=== PATIENT | female | born 1990 | race Caucasian/White ===

== ENCOUNTER 2018-06-27 20:22 | Emergency (ER) | payer OTHER, SELFPAY ==
--- NOTE | 2018-06-27 20:49 | ER ---
Nurse's Notes [facility] Name: Mansi Mcqueen Age: 27 yrs Sex: Female : 1990 Arrival Date: 06/27/2018 Time: 20:23 Bed 7 Private MD: Diagnosis: Acute tonsillitis Presentation: 06/27 20:38 Presenting complaint: Patient states: Sore throat with white patches on tonsils x 2 tl2 days. Pt reports being exposed to strep. Denies cough, congestion or other symptoms. Transition of care: patient was not received from another setting of care. Onset of symptoms was June 25, 2018. Risk Assessment: Do you want to hurt yourself or someone else? Patient reports no desire to harm self or others. Initial Sepsis Screen: Does the patient meet any 2 criteria? No. Patient's initial sepsis screen is negative. Does the patient have a suspected source of infection? No. Patient's initial sepsis screen is negative. Care prior to arrival: None. 20:38 Method Of Arrival: Ambulatory tl2 20:38 Acuity: MASHA 4 tl2 Triage Assessment: 20:40 General: Appears in no apparent distress. uncomfortable, Behavior is calm, cooperative, tl2 appropriate for age. Pain: Complains of pain in throat. EENT: Throat has patchy exudate has enlarged tonsils bilaterally. Neuro: Level of Consciousness is awake, alert, obeys commands, Oriented to person, place, time, situation. Cardiovascular: Denies chest pain. Respiratory: Airway is patent Respiratory effort is even, unlabored, Respiratory pattern is regular, symmetrical. GI: No signs and/or symptoms were reported involving the gastrointestinal system. 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 - Social history:: Smoking status: Patient uses tobacco products, smokes one-half pack cigarettes per day. - Ebola Screening: : No symptoms or risks identified at this time. Screenin:42 Abuse screen: Denies threats or abuse. Nutritional screening: No deficits noted. tl2 Tuberculosis screening: No symptoms or risk factors identified. Fall Risk None identified. Assessment: 20:40 General: see triage assessment. tl2 20:57 Reassessment: Patient appears in no apparent distress at this time. Patient and/or tl2 family updated on plan of care and expected duration. Pain level reassessed. Patient is alert, oriented x 3, equal unlabored respirations, skin warm/dry/pink. Pt verbalized understanding of discharge instructions, need for follow up and prescription usage. Vital Signs: 20:40 BP 122 / 74; Pulse 106; Resp 20; Temp 98.8(O); Pulse Ox 99% on R/A; Weight 74.84 kg; tl2 Height 5 ft. 8 in. (172.72 cm); Pain 5/10; 20:40 Body Mass Index 25.09 (74.84 kg, 172.72 cm) tl2 ED Course: 20:23 Patient arrived in ED. am2 20:32 Joel Durham PA is PHCP. cp 20:32 Johnny Meek MD is Attending Physician. cp 20:38 Shweta Urbina, ROSY is Primary Nurse. tl2 20:39 Triage completed. tl2 20:40 Arm band placed on right wrist. tl2 20:42 Patient has correct armband on for positive identification. Bed in low position. Call tl2 light in reach. Side rails up X 1. 20:57 No provider procedures requiring assistance completed. Patient did not have IV access tl2 during this emergency room visit. Administered Medications: No medications were administered Outcome: 20:48 Discharge ordered by MD. cp 20:57 Discharged to home ambulatory. tl2 20:57 Condition: stable 20:57 Discharge instructions given to patient, Instructed on discharge instructions, follow up and referral plans. medication usage, Demonstrated understanding of instructions, follow-up care, medications, Prescriptions given X 1. 20:58 Patient left the ED. tl2 Signatures: Joel Durham PA PA cp Knox, Taylor, ROSY RN tl2 Lynn Kaur am2 Corrections: (The following items were deleted from the chart) 20:57 20:57 General: Appears tl2 tl2
--- NOTE | 2018-06-27 20:49 | EDPHYS ---
Physician Documentation [facility] Name: Masni Mcqueen Age: 27 yrs Sex: Female : 1990 Arrival Date: 06/27/2018 Time: 20:23 Bed 7 Private MD: ED Physician Johnny Meek HPI: 06/27 20:40 This 27 yrs old Female presents to ER via Ambulatory with complaints of Sore cp Throat. 20:40 The patient presents with sore throat. The patient describes throat pain as constant. cp Onset: The symptoms/episode began/occurred this morning, and became worse today. Severity of symptoms: in the emergency department the symptoms are unchanged, despite home interventions. Modifying factors: the symptoms are aggravated by swallowing. Associated signs and symptoms: Pertinent negatives cough, diarrhea, fever, flu-like symptoms, vomiting. 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 - Social history:: Smoking status: Patient uses tobacco products, smokes one-half pack cigarettes per day. - Ebola Screening: : No symptoms or risks identified at this time. ROS: 20:41 Eyes: Negative for injury, pain, redness, and discharge. cp 20:41 Constitutional: Negative for body aches, chills, fever, poor PO intake. 20:41 ENT: Positive for sore throat, Negative for drainage from ear(s), ear pain, rhinorrhea, difficulty swallowing, difficulty handling secretions. 20:41 Cardiovascular: Negative for chest pain. 20:41 Respiratory: Negative for cough, wheezing. 20:41 Abdomen/GI: Negative for abdominal pain, vomiting, diarrhea, constipation. 20:41 Skin: Negative for cellulitis, rash. 20:41 Neuro: Negative for altered mental status, headache, weakness. 20:41 All other systems are negative. Exam: 20:43 Head/Face: Normocephalic, atraumatic. cp 20:43 Constitutional: The patient appears in no acute distress, alert, awake, non-toxic, well developed, well nourished. 20:43 Eyes: Periorbital structures: appear normal, Conjunctiva: normal, no exudate, no injection, Sclera: no appreciated abnormality, Lids and lashes: appear normal, bilaterally. 20:43 ENT: External ear(s): are unremarkable, Ear canal(s): are normal, clear, TM's: bulging, is not appreciated, bilaterally, dullness, bilaterally, erythema, is not appreciated, bilaterally, Nose: is normal, Mouth: Lips: moist, Oral mucosa: moist, Posterior pharynx: Airway: no evidence of obstruction, patent, Tonsils: bilaterally enlarged, with erythema, with exudate, Uvula: midline, swelling, is not appreciated, erythema, that is moderate, Voice: is normal. 20:43 Neck: ROM/movement: is normal, is supple, without pain, no range of motions limitations, no meningismus, no nuchal rigidity, Lymph nodes: lymphadenopathy is appreciated, anterior cervical nodes. 20:43 Chest/axilla: Inspection: normal, Palpation: is normal, no crepitus, no tenderness. 20:43 Cardiovascular: Rate: tachycardic, Rhythm: regular. 20:43 Respiratory: the patient does not display signs of respiratory distress, Respirations: normal, no use of accessory muscles, no retractions, no splinting, no tachypnea, labored breathing, is not present, Breath sounds: are clear throughout, no decreased breath sounds, no stridor, no wheezing. 20:43 Abdomen/GI: Exam negative for discomfort, distension, Inspection: abdomen appears normal. 20:43 Skin: cellulitis, is not appreciated, no rash present. Vital Signs: 20:40 BP 122 / 74; Pulse 106; Resp 20; Temp 98.8(O); Pulse Ox 99% on R/A; Weight 74.84 kg; tl2 Height 5 ft. 8 in. (172.72 cm); Pain 5/10; 20:40 Body Mass Index 25.09 (74.84 kg, 172.72 cm) tl2 MDM: 20:32 Patient medically screened. cp 20:47 Data reviewed: vital signs, nurses notes, and as a result, I will discharge patient. cp Administered Medications: No medications were administered Disposition: 06/28 06:02 Co-signature as Attending Physician, Johnny Meek MD. ma2 Disposition: 06/27/18 20:48 Discharged to Home. Impression: Acute tonsillitis. - Condition is Stable. - Discharge Instructions: Tonsillitis. - Prescriptions for Clindamycin HCl 300 mg Oral Capsule - take 1 capsule by ORAL route every 8 hours for 10 days; 30 capsule. - Medication Reconciliation Form, Thank You Letter, Antibiotic Education, Prescription Opioid Use form. - Follow up: Private Physician; When: 2 - 3 days; Reason: Recheck today's complaints. - Problem is new. - Symptoms are unchanged. Signatures: Joel Durham PA PA cp Knox, Taylor RN RN tl2 Johnny Meek MD MD ma2 Corrections: (The following items were deleted from the chart) 06/27 20:58 20:48 06/27/2018 20:48 Discharged to Home. Impression: Acute tonsillitis. Condition is tl2 Stable. Forms are Medication Reconciliation Form, Thank You Letter, Antibiotic Education, Prescription Opioid Use. Follow up: Private Physician; When: 2 - 3 days; Reason: Recheck today's complaints. Problem is new. Symptoms are unchanged. cp
[2018-06-27 21:08] VITALS: BP 122/74; TEMP 98.8; O2SAT 99
== END 2018-06-27 20:58 | disposition home or self-care (01) ==
LOC: ER 20:22
DX: J03.90 Acute tonsillitis, unspecified (principal); F17.210 Nicotine dependence, cigarettes, uncomplicated
CPT/HCPCS: 99282

== ENCOUNTER 2018-06-28 07:15 | Emergency (ER) | payer SELFPAY ==
[2018-06-28] MEDS ORDERED: LIDOCAINE VISCOUS 2% SOLN 15 ML UDC ONE (08:02)
--- NOTE | 2018-06-28 08:22 | EDPHYS ---
Physician Documentation [facility] Name: Mansi Mcqueen Age: 27 yrs Sex: Female : 1990 Arrival Date: 06/28/2018 Time: 07:20 Bed 20 Private MD: None, None ED Physician Joel Stacy HPI: 06/28 07:32 This 27 yrs old Female presents to ER via Unassigned with complaints of Sore kb Throat. 07:30 Pt was seen here last night and diagnosed with tonsillitis, given prescription for kb antibiotics. States symptoms got worse since then and she can't swallow the pills due to pain. 07:32 The patient presents with sore throat. The patient describes throat pain as constant. kb Onset: The symptoms/episode began/occurred 2 day(s) ago. Severity of symptoms: At their worst the symptoms were moderate, in the emergency department the symptoms are unchanged. Modifying factors: The symptoms are alleviated by nothing, the symptoms are aggravated by swallowing, Patient's oral intake status: limited fluid intake, limited food intake, Denies contact with similarly ill indivduals. Associated signs and symptoms: Pertinent positives: chills, fever, Sore throat Pertinent negatives chest pain, cough, diarrhea, dysphagia, earache, flu-like symptoms, headache, nausea, rhinorrhea, shortness of breath, vomiting. The patient has not experienced similar symptoms in the past. The patient has been recently seen at the [facility] Emergency Department, yesterday, for similar complaints was given a prescription for antibiotics. Pt denies allergy to PCN. Reports she just took a course of PCN for a bad tooth and did not have a reaction. Reports only allergy is to bactrim. . 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 - Social history:: Smoking status: Patient uses tobacco products, smokes one-half pack cigarettes per day. - Ebola Screening: : Patient negative for fever greater than or equal to 101.5 degrees Fahrenheit, and additional compatible Ebola Virus Disease symptoms Patient denies exposure to infectious person Patient denies travel to an Ebola-affected area in the 21 days before illness onset No symptoms or risks identified at this time. ROS: 07:32 Constitutional: Negative for fever, chills, and weight loss, Cardiovascular: Negative kb for chest pain, palpitations, and edema, Respiratory: Negative for shortness of breath, cough, wheezing, and pleuritic chest pain, Abdomen/GI: Negative for abdominal pain, nausea, vomiting, diarrhea, and constipation, MS/Extremity: Negative for injury and deformity, Skin: Negative for injury, rash, and discoloration, Neuro: Negative for headache, weakness, numbness, tingling, and seizure. 07:32 ENT: Positive for sore throat. Exam: 07:32 Constitutional: This is a well developed, well nourished patient who is awake, alert, kb and in no acute distress. Head/Face: Normocephalic, atraumatic. Chest/axilla: Normal chest wall appearance and motion. Nontender with no deformity. No lesions are appreciated. Cardiovascular: Regular rate and rhythm with a normal S1 and S2. No gallops, murmurs, or rubs. Normal PMI, no JVD. No pulse deficits. Respiratory: Lungs have equal breath sounds bilaterally, clear to auscultation and percussion. No rales, rhonchi or wheezes noted. No increased work of breathing, no retractions or nasal flaring. Abdomen/GI: Soft, non-tender, with normal bowel sounds. No distension or tympany. No guarding or rebound. No evidence of tenderness throughout. Skin: Warm, dry with normal turgor. Normal color with no rashes, no lesions, and no evidence of cellulitis. MS/ Extremity: Pulses equal, no cyanosis. Neurovascular intact. Full, normal range of motion. Neuro: Awake and alert, GCS 15, oriented to person, place, time, and situation. Cranial nerves II-XII grossly intact. Motor strength 5/5 in all extremities. Sensory grossly intact. Cerebellar exam normal. Normal gait. 07:32 ENT: Posterior pharynx: Airway: normal, Tonsils: bilaterally enlarged, with erythema, with exudate, Uvula: normal, midline, swelling, that is moderate, erythema, that is mild, exudate, that is moderate. Vital Signs: 07:48 BP 102 / 56; Pulse 97; Resp 18; Temp 99.7; Pulse Ox 97% ; Weight 74.84 kg; Height 5 ft. em 8 in. (172.72 cm); 07:48 Body Mass Index 25.09 (74.84 kg, 172.72 cm) em MDM: 07:[address] [facility] 07:34 Data reviewed: vital signs, nurses notes. Data interpreted: Pulse oximetry: on room air kb is 97 %. Interpretation: normal. 08:17 Counseling: I had a detailed discussion with the patient and/or guardian regarding: the kb historical points, exam findings, and any diagnostic results supporting the discharge/admit diagnosis, lab results, the need for outpatient follow up, a family practitioner, to return to the emergency department if symptoms worsen or persist or if there are any questions or concerns that arise at home. 06/28 07:30 Order name: Strep; Complete Time: 08:17 kb Administered Medications: 07:58 Drug: Viscous Lidocaine Liquid (4 %) 5 ml Route: Mucous Membrane; em 08:15 Follow up: Response: No adverse reaction; Pain is decreased em Disposition: 06/29 08:16 Co-signature as Attending Physician, Joel Stacy MD I agree with the assessment and [facility] plan of care. Disposition: 06/28/18 08:22 Discharged to Home. Impression: Streptococcal pharyngitis. - Condition is Stable. - Discharge Instructions: Strep Throat, [id number]. - Medication Reconciliation Form, Thank You Letter, Antibiotic Education, Prescription Opioid Use form. - Follow up: Emergency Department; When: As needed; Reason: Worsening of condition. Follow up: Private Physician; When: 2 - 3 days; Reason: Recheck today's complaints, Continuance of care, Re-evaluation by your physician. - Notes: Continue clindamycin as prescribed Signatures: Dispatcher [employer] Ebony Block, YUMIKO CABRERA-Joel Garrison MD MD cha Munoz, Edgar, GREEN CHAIN OFF BEARER GREEN CHAIN OFF BEARER em Corrections: (The following items were deleted from the chart) 06/28 08:32 08:22 06/28/2018 08:22 Discharged to Home. Impression: Streptococcal pharyngitis. em Condition is Stable. Forms are Medication Reconciliation Form, Thank You Letter, Antibiotic Education, Prescription Opioid Use. Follow up: Emergency Department; When: As needed; Reason: Worsening of condition. Follow up: Private Physician; When: 2 - 3 days; Reason: Recheck today's complaints, Continuance of care, Re-evaluation by your physician. kb
--- NOTE | 2018-06-28 08:22 | ER ---
Nurse's Notes [facility] Name: Mansi Mcqueen Age: 27 yrs Sex: Female : 1990 Arrival Date: 06/28/2018 Time: 07:20 Bed 20 Private MD: None, None Diagnosis: Streptococcal pharyngitis Presentation: 06/28 07:46 Presenting complaint: Patient states: c/o sore throat for 2 days with chills and em subjective fever, was seen here yesterday, denies N/V/D. Transition of care: patient was not received from another setting of care. Onset of symptoms was June 26, 2018. Risk Assessment: Do you want to hurt yourself or someone else? Patient reports no desire to harm self or others. Initial Sepsis Screen: Does the patient meet any 2 criteria? No. Patient's initial sepsis screen is negative. Does the patient have a suspected source of infection? No. Patient's initial sepsis screen is negative. Care prior to arrival: None. 07:46 Method Of Arrival: Ambulatory em 08:01 Acuity: MASHA 4 iw Triage Assessment: 07:47 General: Appears in no apparent distress. uncomfortable, Behavior is calm, cooperative. em Pain: Complains of pain in throat. EENT: Oral mucosa is moist. Throat is reddened has patchy exudate bilaterally. 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 - Social history:: Smoking status: Patient uses tobacco products, smokes one-half pack cigarettes per day. - Ebola Screening: : Patient negative for fever greater than or equal to 101.5 degrees Fahrenheit, and additional compatible Ebola Virus Disease symptoms Patient denies exposure to infectious person Patient denies travel to an Ebola-affected area in the 21 days before illness onset No symptoms or risks identified at this time. Screenin:57 Abuse screen: Denies threats or abuse. Nutritional screening: No deficits noted. em Tuberculosis screening: No symptoms or risk factors identified. Fall Risk None identified. Assessment: 07:45 General: Appears in no apparent distress. uncomfortable, Behavior is calm, cooperative. em Pain: Complains of pain in throat. Neuro: Level of Consciousness is awake, alert, obeys commands, Oriented to person, place, time, situation. Cardiovascular: Capillary refill < 3 seconds Patient's skin is warm and dry. Respiratory: Airway is patent Respiratory effort is even, unlabored, Respiratory pattern is regular, symmetrical, Breath sounds are clear bilaterally. GI: Abdomen is flat. : No signs and/or symptoms were reported regarding the genitourinary system. EENT: Oral mucosa is moist. Throat is reddened has patchy exudate has enlarged tonsils bilaterally. Derm: Skin is intact, Skin is pink, warm \T\ dry. Musculoskeletal: Range of motion: intact in all extremities. Vital Signs: 07:48 BP 102 / 56; Pulse 97; Resp 18; Temp 99.7; Pulse Ox 97% ; Weight 74.84 kg; Height 5 ft. em 8 in. (172.72 cm); 07:48 Body Mass Index 25.09 (74.84 kg, 172.72 cm) em ED Course: 07:20 Patient arrived in ED. mr 07:20 None, None is Private Physician. mr 07:21 Ebony Gonzales [facility]-C [facility]. kb 07:21 Joel Stacy MD is Attending Physician. kb 07:22 Ade Farias, RN is Primary Nurse. iw 07:53 Arm band placed on. em 07:57 Patient has correct armband on for positive identification. Bed in low position. Call em light in reach. 07:57 No provider procedures requiring assistance completed. em 07:58 Strep swab sent to lab. em 08:01 Triage completed. iw 08:31 Patient did not have IV access during this emergency room visit. em Administered Medications: 07:58 Drug: Viscous Lidocaine Liquid (4 %) 5 ml Route: Mucous Membrane; em 08:15 Follow up: Response: No adverse reaction; Pain is decreased em Outcome: 08:22 Discharge ordered by . kb 08:31 Discharged to home ambulatory. em 08:31 Condition: good 08:31 Discharge instructions given to patient, Instructed on discharge instructions, follow up and referral plans. Demonstrated understanding of instructions, follow-up care. 08:32 Patient left the ED. em Signatures: Ebony Gonzales, EPITAXIAL REACTOR OPERATOR-C EPITAXIAL REACTOR OPERATOR-Kevynb Ifeoma Mejia mr Duke Alejandre, UPSCALE SECURITY OFFICER UPSCALE SECURITY OFFICER Ade Mckeon, RN RN iw
[2018-06-28 08:40] VITALS: BP 102/56; TEMP 99.7; O2SAT 97
== END 2018-06-28 08:32 | disposition home or self-care (01) ==
LOC: ER 07:15
DX: J02.0 Streptococcal pharyngitis (principal); F17.210 Nicotine dependence, cigarettes, uncomplicated
CPT/HCPCS: 87081; 99283

== ENCOUNTER 2018-12-29 20:09 | Emergency (ER) | payer SELFPAY ==
--- OUTSIDE RECORDS SUMMARY | 2018-12-29 20:12 | XMS REPORT | Continuity of Care Document ---
:1990 Author Organization [facility] Address [address] [place] [address] Phone Unavailable Care Team Providers Name Role Phone PHYSICIAN, NO Primary Care Physician Unavailable Insurance Providers Guarantor Sudheer Mcqueen Address [address] [place] [address] Email NONE Payer Medicaid Policy Number [id number] Subscriber's Name Sudheer Mcqueen Relationship Self / Same As Patient Group Number [id number] Group Name [id number] Advance Directives Directive Response Recorded Date/Time Name of Surrogate/Decision Maker NA 12/17/18 2:08pm Patient/Family Given Education Material Y - KR...05...12/17/18 12/17/18 2: 09pm R/T Directives? Chief Complaint and Reason for Visit Chief Complaint HEENTL Reason for Visit Dentalgia Pain due to dental caries Problems Active ProblemsNo active problem information available. Past Problems Medical Problem Onset Date Status Dentalgia Unknown Acute Pain due to dental caries Unknown Acute Medications Current Home Medications Medication Dose Units Route Directions Days Qty Instructions Start Date Clindamycin Hcl 150 Mg ORAL Every 6 Hours 7 Days 28 Cap 12/17/18 (Cleocin 150 Mg for Infection *) 150 Mg Cap Social History Social History Problem Response Recorded Date/Time Onset Date Status Hx Physical Abuse No 12/17/2018 11:28am Not Applicable Not Applicable Smoking Status Start Date Stop Date Current every day smoker Hospital Discharge Instructions No hospital discharge instruction information available. Plan of Care Discharge Date 12/17/18 4:34pm Instructions/Education Provided Dental Caries, Adult Forms Provided Portal Welcome Letter Prescriptions See Medication Section Referrals NO PHYSICIAN Additional Instructions/Education TAKE ALL MEDICATIONS PRESCRIBED. CLINDAMYCIN 150MG CAP 1 BY MOUTH EVERY 6 HOURS X 10 DAYS FOLLOW UP WITH A DENTIST SOON POSSIBLE., USE OVER THE COUNTER TYLENOL OR MOTRIN DIRECTED FOR PAIN. Functional Status No functional status information available. Allergies, Adverse Reactions, Alerts Allergen Type Severity Reaction Status Last Updated No Known Allergies Allergy Unknown Active 12/17/18 Immunizations No immunization information available. Vital Signs Acute Vital Signs Vital Response Date/Time Blood Pressure 108/65 mm Hg 12/17/2018 4:46pm Pulse Pulse Rate (adult) 68 beats per minute (60 - 100) 12/17/2018 4:46pm Respiratory Rate 20 breaths per minute (10 - 24) 12/17/2018 4:46pm Temperature Source Oral 12/17/2018 4:46pm Height 5 ft 9 in 12/17/2018 11:28am Weight 155 lb 12/17/2018 11:28am Body Mass Index 22.9 kg/m^2 12/17/2018 11:28am Results Laboratory Results Test Name Result Units Flags Reference Collection Result Comments Date/Time Date/Time White Blood Count 7.6 K/ul 4.0-11.5 12/17/2018 12/17/2018 3:42pm 3:55pm Red Blood Count 4.23 M/ul 3.80-5.20 12/17/2018 12/17/2018 3:42pm 3:55pm Hemoglobin 12.3 g/dl 10.5-15.7 12/17/2018 12/17/2018 3:42pm 3:55pm Hematocrit 38.3 % 34.0-50.0 12/17/2018 12/17/2018 3:42pm 3:55pm Mean Corpuscular 90.5 fl 78-98 12/17/2018 12/17/2018 Volume 3:42pm 3:55pm Mean Corpuscular 29.1 pg 26.2-33.4 12/17/2018 12/17/2018 Hemoglobin 3:42pm 3:55pm Mean Corpuscular 32.1 g/dl 31.5-36.2 12/17/2018 12/17/2018 Hemoglobin Concent 3:42pm 3:55pm Red Cell 11.5 % 11.5-15.5 12/17/2018 12/17/2018 Distribution Width 3:42pm 3:55pm Platelet Count 285 K/ul 137-338 12/17/2018 12/17/2018 3:42pm 3:55pm Mean Platelet 8.7 fl 8.4-11.8 12/17/2018 12/17/2018 Volume 3:42pm 3:55pm Neutrophils (%) 55.4 % 44.4-80.1 12/17/2018 12/17/2018 (Auto) 3:42pm 3:55pm Lymphocytes (%) 30.9 % 10.0-50.0 12/17/2018 12/17/2018 (Auto) 3:42pm 3:55pm Monocytes (%) 8.0 % 3.6-12.04 12/17/2018 12/17/2018 (Auto) 3:42pm 3:55pm Eosinophils (%) 3.6 % 0.0-5.41 12/17/2018 12/17/2018 (Auto) 3:42pm 3:55pm Basophils (%) 2.1 % H 0.0-0.79 12/17/2018 12/17/2018 (Auto) 3:42pm 3:55pm Procedures No procedure information available. Encounters Encounter Location Arrival/Admit Date Discharge/Depart Date Attending Provider Departed [facility] 12/17/18 11:18am 12/17/18 4:34pm YOLANDA OTERO MD Emergency Room [facility] Recent Diagnosis
--- NOTE | 2018-12-29 20:38 | ER ---
Nurse's Notes [facility] Name: Mansi Mcqueen Age: 28 yrs Sex: Female : 1990 Arrival Date: 12/29/2018 Time: 20:13 Bed 25 Private MD: Diagnosis: Periapical abscess without sinus Presentation: 12/29 20:20 Presenting complaint: Patient states: I went to the hospital a week ago and they gave ed1 my Clindamycin for my tooth infection but it is getting worse. Transition of care: patient was not received from another setting of care. Onset of symptoms was September 2018. Risk Assessment: Do you want to hurt yourself or someone else? Patient reports no desire to harm self or others. Initial Sepsis Screen: Does the patient meet any 2 criteria? No. Patient's initial sepsis screen is negative. Does the patient have a suspected source of infection? No. Patient's initial sepsis screen is negative. Care prior to arrival: None. 20:20 Method Of Arrival: Ambulatory ed1 20:20 Acuity: MASHA 3 ed1 Triage Assessment: 20:22 General: Appears in no apparent distress. Behavior is calm, cooperative. Pain: ed1 Complains of pain in mouth Pain currently is 6 out of 10 on a pain scale. 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 - Social history:: Smoking status: Patient uses tobacco products, smokes one-half pack cigarettes per day. - Ebola Screening: : Patient negative for fever greater than or equal to 101.5 degrees Fahrenheit, and additional compatible Ebola Virus Disease symptoms Patient denies exposure to infectious person Patient denies travel to an Ebola-affected area in the 21 days before illness onset No symptoms or risks identified at this time. Screenin:50 Abuse screen: Denies threats or abuse. Denies injuries from another. Nutritional rv screening: No deficits noted. Tuberculosis screening: No symptoms or risk factors identified. Fall Risk None identified. Assessment: 20:48 General: Appears in no apparent distress. comfortable, Behavior is calm, cooperative. rv 20:49 General:. Pain: Complains of pain in mouth. Neuro: Level of Consciousness is awake, rv alert, obeys commands, Oriented to person, place, time, situation. Cardiovascular: Patient's skin is warm and dry. Respiratory: Airway is patent. GI: No signs and/or symptoms were reported involving the gastrointestinal system. : No signs and/or symptoms were reported regarding the genitourinary system. EENT: No signs and/or symptoms were reported regarding the EENT system. Derm: Skin is intact. Musculoskeletal: No signs and/or symptoms reported regarding the musculoskeletal system. Vital Signs: 20:22 BP 115 / 67; Pulse 93; Resp 18; Temp 97.9; Pulse Ox 99% on R/A; Weight 72.57 kg; Height ed1 5 ft. 9 in. (175.26 cm); Pain 6/10; 20:53 BP 121 / 68; Pulse 89; Resp 18; Temp 98; Pulse Ox 99% ; rv 20:22 Body Mass Index 23.63 (72.57 kg, 175.26 cm) ed1 ED Course: 20:13 Patient arrived in ED. es 20:21 Triage completed. ed1 20:22 Arm band placed on left wrist. ed1 20:25 [facility]C [facility]. kb 20:25 Yamil Robledo MD is Attending Physician. kb 20:48 Iban Huddleston, ROSY is Primary Nurse. rv 20:50 Patient has correct armband on for positive identification. Bed in low position. Call rv light in reach. Side rails up X 1. Pulse ox on. NIBP on. 20:52 No provider procedures requiring assistance completed. Patient did not have IV access rv during this emergency room visit. Administered Medications: No medications were administered Outcome: 20:38 Discharge ordered by . kb 20:52 Discharged to home ambulatory. rv 20:52 Condition: good 20:52 Discharge instructions given to patient, Instructed on discharge instructions, follow up and referral plans. medication usage, Demonstrated understanding of instructions, follow-up care, medications, Prescriptions given X 1. 20:55 Patient left the ED. rv Signatures: Ebony Gonzales FNP-C FNP-Ckb Salyer, Camila es Bonilla, Susy, RN RN ed1 Iban Huddleston, RN RN rv
--- NOTE | 2018-12-29 20:38 | EDPHYS ---
Physician Documentation [facility] Name: Mansi Mcqueen Age: 28 yrs Sex: Female : 1990 Arrival Date: 12/29/2018 Time: 20:13 Bed 25 Private MD: ED Physician Yamil Robledo HPI: 12/29 20:42 This 28 yrs old Female presents to ER via Ambulatory with complaints of Mouth kb Swelling, MOUTH INFECTION,EAR PAIN. 20:42 The patient presents with pain, swelling. The problem is located in the upper right kb first molar. Onset: The symptoms/episode began/occurred "months ago". Duration: The symptoms are continuous. Modifying factors: The symptoms are alleviated by nothing, the symptoms are aggravated by nothing. Associated signs and symptoms: Pertinent positives: pain, redness in area, swelling. Severity of symptoms: At their worst the symptoms were moderate, in the emergency department the symptoms are unchanged. The patient has experienced similar episodes in the past. The patient has been recently seen by a physician:. Pt reports she has had an abscess for months. States it was draining and she was running fever so she went to [place] [facility] and was given 10 days of clindamycin. STates it isn't draining anymore and she hasn't been running a fever, but it is still there and her appt with her dentist isn't until . Completed clindamycin 2 days ago.. 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 - Social history:: Smoking status: Patient uses tobacco products, smokes one-half pack cigarettes per day. - Ebola Screening: : Patient negative for fever greater than or equal to 101.5 degrees Fahrenheit, and additional compatible Ebola Virus Disease symptoms Patient denies exposure to infectious person Patient denies travel to an Ebola-affected area in the 21 days before illness onset No symptoms or risks identified at this time. ROS: 20:38 Constitutional: Negative for fever, chills, and weight loss, Cardiovascular: Negative kb for chest pain, palpitations, and edema, Respiratory: Negative for shortness of breath, cough, wheezing, and pleuritic chest pain, Abdomen/GI: Negative for abdominal pain, nausea, vomiting, diarrhea, and constipation, : Negative for injury, bleeding, discharge, and swelling, MS/Extremity: Negative for injury and deformity, Skin: Negative for injury, rash, and discoloration, Neuro: Negative for headache, weakness, numbness, tingling, and seizure. 20:38 ENT: Positive for dental pain. Exam: 20:39 Constitutional: This is a well developed, well nourished patient who is awake, alert, kb and in no acute distress. Head/Face: Normocephalic, atraumatic. Chest/axilla: Normal chest wall appearance and motion. Nontender with no deformity. No lesions are appreciated. Cardiovascular: Regular rate and rhythm with a normal S1 and S2. No gallops, murmurs, or rubs. Normal PMI, no JVD. No pulse deficits. Respiratory: Lungs have equal breath sounds bilaterally, clear to auscultation and percussion. No rales, rhonchi or wheezes noted. No increased work of breathing, no retractions or nasal flaring. Abdomen/GI: Soft, non-tender, with normal bowel sounds. No distension or tympany. No guarding or rebound. No evidence of tenderness throughout. Skin: Warm, dry with normal turgor. Normal color with no rashes, no lesions, and no evidence of cellulitis. MS/ Extremity: Pulses equal, no cyanosis. Neurovascular intact. Full, normal range of motion. Neuro: Awake and alert, GCS 15, oriented to person, place, time, and situation. Cranial nerves II-XII grossly intact. Motor strength 5/5 in all extremities. Sensory grossly intact. Cerebellar exam normal. Normal gait. 20:39 ENT: Mouth: abscess, that is moderate, of the upper right first molar. Vital Signs: 20:22 BP 115 / 67; Pulse 93; Resp 18; Temp 97.9; Pulse Ox 99% on R/A; Weight 72.57 kg; Height ed1 5 ft. 9 in. (175.26 cm); Pain 6/10; 20:53 BP 121 / 68; Pulse 89; Resp 18; Temp 98; Pulse Ox 99% ; rv 20:22 Body Mass Index 23.63 (72.57 kg, 175.26 cm) ed1 MDM: 20:25 Patient medically screened. kb 20:38 Data reviewed: vital signs, nurses notes. Data interpreted: Pulse oximetry: on room air kb is 99 %. Interpretation: normal. Counseling: I had a detailed discussion with the patient and/or guardian regarding: the historical points, exam findings, and any diagnostic results supporting the discharge/admit diagnosis, the need for outpatient follow up, a family practitioner, to return to the emergency department if symptoms worsen or persist or if there are any questions or concerns that arise at home. 20:44 ED course: Educated to keep appt with dentist to have abscess surgically drained. . kb Administered Medications: No medications were administered Disposition: 23:57 Co-signature as Attending Physician, Yamil Robledo MD. Disposition: 12/29/18 20:38 Discharged to Home. Impression: Periapical abscess without sinus. - Condition is Stable. - Discharge Instructions: Dental Pain, [id number], Dental Abscess, [id number]. - Prescriptions for Clindamycin HCl 300 mg Oral Capsule - take 1 capsule by ORAL route every 6 hours for 10 days; 40 capsule. - Medication Reconciliation Form, Thank You Letter, Antibiotic Education, Prescription Opioid Use form. - Follow up: Emergency Department; When: As needed; Reason: Worsening of condition. Follow up: Private Physician; When: 2 - 3 days; Reason: Recheck today's complaints, Continuance of care, Re-evaluation by your physician. Signatures: Ebony Gonzales, Susy Mclain RN RN ed1 Yamil Robledo MD MD Iban Huddleston, RN RN rv Corrections: (The following items were deleted from the chart) 20:55 20:38 12/29/2018 20:38 Discharged to Home. Impression: Periapical abscess without rv sinus. Condition is Stable. Forms are Medication Reconciliation Form, Thank You Letter, Antibiotic Education, Prescription Opioid Use. Follow up: Emergency Department; When: As needed; Reason: Worsening of condition. Follow up: Private Physician; When: 2 - 3 days; Reason: Recheck today's complaints, Continuance of care, Re-evaluation by your physician. kb
[2018-12-30 05:50] VITALS: O2SAT 99
[2018-12-30 05:52] VITALS: BP 121/68; TEMP 98
== END 2018-12-29 20:55 | disposition home or self-care (01) ==
LOC: ER 20:09
DX: K04.7 Periapical abscess without sinus (principal); D64.9 Anemia, unspecified; F17.210 Nicotine dependence, cigarettes, uncomplicated; Z88.1 Allergy status to other antibiotic agents; Z88.0 Allergy status to penicillin
CPT/HCPCS: 99283

== ENCOUNTER 2019-08-28 08:12 | Emergency (ER) | payer MEDICAID, SELFPAY ==
--- OUTSIDE RECORDS SUMMARY | 2019-08-28 08:15 | XMS REPORT | Continuity of Care Document ---
:1990 Author Organization [facility] Address [address] [place] [address] Phone Unavailable Care Team Providers Name Role Phone PHYSICIAN, NO Primary Care Physician Unavailable Insurance Providers Guarantor Sudheer Davis Address [address] [place] [address] Email NONE Payer Medicaid Policy Number [id number] Subscriber's Name Sudheer Davis Relationship Self / Same As Patient Group Number HTW Group Name HTW Advance Directives Directive Response Recorded Date/Time Patient/Family Given Education Material R/T Directives? Y - VV 12/31/18 2: 49pm Chief Complaint and Reason for Visit Chief Complaint HEENTL Reason for Visit Infected dental carries Problems Active ProblemsNo active problem information available. Past Problems Medical Problem Onset Date Status Dentalgia Unknown Acute Infected dental carries Unknown Acute Pain due to dental caries Unknown Acute Medications Current Home Medications Medication Dose Units Route Directions Days Qty Instructions Start Date Cefdinir 300 Mg ORAL Every 12 Hours 10 Days 20 Cap 12/31/18 (Omnicef*) 300 for Infection Mg Cap Clindamycin Hcl 150 Mg ORAL Every 6 Hours 7 Days 28 Cap 12/17/18 (Cleocin 150 Mg for Infection *) 150 Mg Cap Past Home Medications Medication Directions Ordered Status Amoxicillin (Amoxil *) 500 Mg Cap, Twice A Day for Infection 12/31/18 Discontinued 500 Mg Oral Social History Social History Problem Response Recorded Date/Time Onset Date Status Hx Physical Abuse No 12/31/2018 1:07pm Not Applicable Not Applicable Smoking Status Start Date Stop Date Current every day smoker Hospital Discharge Instructions No hospital discharge instruction information available. Plan of Care Discharge Date 12/31/18 2:48pm Instructions/Education Provided Dental Caries, Adult, [id number] Forms Provided Portal Welcome Letter Prescriptions See Medication Section Referrals NO PHYSICIAN Additional Instructions/Education Tylenol and ibuprofen as needed for pain Cefdinir 300mg twice a day for 10 days Stop the Zithromycin Follow with your dentist tomorrow Return for new or worsening of symptoms ice compresses 4 times per day Functional Status No functional status information available. Allergies, Adverse Reactions, Alerts Allergen Type Severity Reaction Status Last Updated No Known Allergies Allergy Unknown Active 12/17/18 Immunizations No immunization information available. Vital Signs Acute Vital Signs Vital Response Date/Time Blood Pressure 113/73 mm Hg 12/31/2018 1:07pm Pulse Pulse Rate (adult) 112 beats per minute (60 - 100) 12/31/2018 1:07pm Respiratory Rate 15 breaths per minute (10 - 24) 12/31/2018 3:16pm Temperature Source Oral 12/31/2018 3:16pm Height 5 ft 9 in 12/31/2018 1:07pm Weight 160 lb 12/31/2018 1:07pm Body Mass Index 23.6 kg/m^2 12/31/2018 1:07pm Results Laboratory Results Test Name Result Units [...] 0.0-0.79 12/17/2018 12/17/2018 (Auto) 3:42pm 3:55pm Procedures Procedure Status Date Provider(s) EMERGENCY DEPT VISIT Completed 12/17/18 COMPLETE CBC W/AUTO DIFF WBC Completed 12/17/18 ROUTINE VENIPUNCTURE Completed 12/17/18 Encounters Encounter Location Arrival/Admit Date Discharge/Depart Date Attending Provider Departed [place] 12/31/18 12:53pm 12/31/18 2:48pm MARY LOU BLANK [facility] Departed [place] 12/17/18 11:18am 12/17/18 4:34pm YOLANDA OTERO MD [facility] Recent Diagnosis
--- NOTE | 2019-08-28 09:25 | ER ---
Nurse's Notes [facility] Name: Mansi Mcqueen Age: 28 yrs Sex: Female : 1990 Arrival Date: 08/28/2019 Time: 08:18 Bed 5 Private MD: Diagnosis: Acute pharyngitis Presentation: 08/28 08:42 Presenting complaint: Patient states: sore throat and fatigue x 3 days. "I think I have ss strep.". Transition of care: patient was not received from another setting of care. Onset of symptoms was August 25, 2019. Risk Assessment: Do you want to hurt yourself or someone else? Patient reports no desire to harm self or others. Initial Sepsis Screen: Does the patient meet any 2 criteria? RR > 20 per min. HR > 90 bpm. Does the patient have a suspected source of infection? Yes: Productive cough/pneumonia. Care prior to arrival: None. 08:42 Method Of Arrival: Carried ss 08:42 Acuity: MASHA 4 ss Historical: - Allergies: 08:43 Amoxicillin; ss 08:43 Bactrim; ss 08:43 PENICILLINS; ss - Home Meds: 08:43 None [Active]; ss - PMHx: 08:43 Anemia; chronic uti; ss - PSHx: 08:43 ; foot surgery; ss - Immunization history:: Adult Immunizations up to date. - Coronavirus screen:: The patient has NOT traveled to [place], [place], or [place] in the past 14 days. - Social history:: Smoking status: Patient reports the use of cigarette tobacco products, smokes one-half pack cigarettes per day. - Ebola Screening: : No symptoms or risks identified at this time Patient denies exposure to infectious person Patient denies travel to an Ebola-affected area in the 21 days before illness onset. Screenin:42 Abuse screen: Denies threats or abuse. Denies injuries from another. Nutritional ph screening: No deficits noted. Tuberculosis screening: No symptoms or risk factors identified. Fall Risk None identified. Assessment: 09:04 General: Appears in no apparent distress. uncomfortable, Behavior is calm, cooperative, jl7 appropriate for age. Pain: Complains of pain in sore throat Pain currently is 5 out of 10 on a pain scale. Neuro: Level of Consciousness is awake, alert, obeys commands, Oriented to person, place, time, situation. Cardiovascular: Patient's skin is warm and dry. Respiratory: Airway is patent Respiratory effort is even, unlabored, Respiratory pattern is regular, symmetrical, Breath sounds are clear bilaterally. EENT: Throat is reddened has enlarged tonsils bilaterally. Derm: Skin is pink, warm \\T\\ dry. Vital Signs: 08:41 Pulse 92; Resp 16; Temp 98.4(O); Pulse Ox 98% on R/A; ss 08:50 BP 106 / 74; Weight 70.31 kg; Height 5 ft. 1 in. (154.94 cm); Pain 5/10; ss 08:50 Body Mass Index 29.29 (70.31 kg, 154.94 cm) ED Course: 08:18 Patient arrived in ED. ag5 08:20 Ebony Gonzaels [facility]-C [facility]. kb 08:20 Sree Ramon MD is Attending Physician. kb 08:34 Monserrat Dhaliwal, RN is Primary Nurse. ph 08:41 Arm band placed on right wrist. 08:43 Triage completed. 08:43 Patient has correct armband on for positive identification. Bed in low position. Call ph light in reach. Side rails up X 1. Door closed. Noise minimized. 08:50 Flu and/or RSV swab sent to lab. Strep swab sent to lab. jl7 09:35 No provider procedures requiring assistance completed. Patient did not have IV access ph during this emergency room visit. Administered Medications: No medications were administered Outcome: 09:25 Discharge ordered by MD. kb 09:35 Discharged to home ambulatory. ph 09:35 Condition: good 09:35 Discharge instructions given to patient, Instructed on discharge instructions, follow up and referral plans. Demonstrated understanding of instructions, follow-up care. 09:36 Patient left the ED. ph Signatures: Ebony Gonzales FNP-C FNP-Ckb Smirch, Shelby, RN RN Monserrat Dhaliwal RN RN ph Leal, Jahala, RN RN Jenn Rizvi ag5
--- NOTE | 2019-08-28 09:26 | EDPHYS ---
Physician Documentation [facility] Name: Mansi Mcqueen Age: 28 yrs Sex: Female : 1990 Arrival Date: 08/28/2019 Time: 08:18 Bed 5 Private MD: ED Physician Sree Ramon HPI: 08/28 09:05 This 28 yrs old Female presents to ER via Carried with complaints of Sore kb Throat. 09:05 The patient presents with sore throat. The patient describes throat pain as constant. kb Onset: The symptoms/episode began/occurred 3 day(s) ago. Severity of symptoms: At their worst the symptoms were moderate, in the emergency department the symptoms are unchanged. Modifying factors: The symptoms are alleviated by nothing, the symptoms are aggravated by swallowing, Patient's oral intake status: good. Associated signs and symptoms: Pertinent positives: Sore throat. The patient has not experienced similar symptoms in the past. The patient has not recently seen a physician. Pt reports sore throat and not feeling well for 3 days. Reports she feels the same way as she normally does when she has strep. Historical: - Allergies: 08:43 Amoxicillin; ss 08:43 Bactrim; ss 08:43 PENICILLINS; ss - Home Meds: 08:43 None [Active]; ss - PMHx: 08:43 Anemia; chronic uti; ss - PSHx: 08:43 ; foot surgery; ss - Immunization history:: Adult Immunizations up to date. - Coronavirus screen:: The patient has NOT traveled to [place], [place], or [place] in the past 14 days. - Social history:: Smoking status: Patient reports the use of cigarette tobacco products, smokes one-half pack cigarettes per day. - Ebola Screening: : No symptoms or risks identified at this time Patient denies exposure to infectious person Patient denies travel to an Ebola-affected area in the 21 days before illness onset. ROS: 09:05 Neck: Negative for injury, pain, and swelling, Cardiovascular: Negative for chest pain, kb palpitations, and edema, Respiratory: Negative for shortness of breath, cough, wheezing, and pleuritic chest pain, Abdomen/GI: Negative for abdominal pain, nausea, vomiting, diarrhea, and constipation, Back: Negative for injury and pain, : Negative for injury, bleeding, discharge, and swelling, MS/Extremity: Negative for injury and deformity, Skin: Negative for injury, rash, and discoloration, Neuro: Negative for headache, weakness, numbness, tingling, and seizure. 09:05 Constitutional: Positive for fatigue, malaise. 09:05 ENT: Positive for sore throat. Exam: 09:05 Constitutional: This is a well developed, well nourished patient who is awake, alert, kb and in no acute distress. Head/Face: Normocephalic, atraumatic. Neck: Trachea midline, no thyromegaly or masses palpated, and no cervical lymphadenopathy. Supple, full range of motion without nuchal rigidity, or vertebral point tenderness. No Meningismus. Chest/axilla: Normal chest wall appearance and motion. Nontender with no deformity. No lesions are appreciated. Cardiovascular: Regular rate and rhythm with a normal S1 and S2. No gallops, murmurs, or rubs. Normal PMI, no JVD. No pulse deficits. Respiratory: Lungs have equal breath sounds bilaterally, clear to auscultation and percussion. No rales, rhonchi or wheezes noted. No increased work of breathing, no retractions or nasal flaring. Abdomen/GI: Soft, non-tender, with normal bowel sounds. No distension or tympany. No guarding or rebound. No evidence of tenderness throughout. Back: No spinal tenderness. No costovertebral tenderness. Full range of motion. Skin: Warm, dry with normal turgor. Normal color with no rashes, no lesions, and no evidence of cellulitis. MS/ Extremity: Pulses equal, no cyanosis. Neurovascular intact. Full, normal range of motion. Neuro: Awake and alert, GCS 15, oriented to person, place, time, and situation. Cranial nerves II-XII grossly intact. Motor strength 5/5 in all extremities. Sensory grossly intact. Cerebellar exam normal. Normal gait. 09:05 ENT: External ear(s): are unremarkable, Ear canal(s): are normal, TM's: are normal, Nose: is normal, Mouth: is normal, Posterior pharynx: erythema, that is moderate. Vital Signs: 08:41 Pulse 92; Resp 16; Temp 98.4(O); Pulse Ox 98% on R/A; ss 08:50 BP 106 / 74; Weight 70.31 kg; Height 5 ft. 1 in. (154.94 cm); Pain 5/10; ss 08:50 Body Mass Index 29.29 (70.31 kg, 154.94 cm) ss MDM: 08:30 Patient medically screened. kb 09:04 Data reviewed: vital signs, nurses notes. Data interpreted: Pulse oximetry: on room air kb is 98 %. Interpretation: normal. Counseling: I had a detailed discussion with the patient and/or guardian regarding: the historical points, exam findings, and any diagnostic results supporting the discharge/admit diagnosis, lab results, the need for outpatient follow up, a family practitioner, to return to the emergency department if symptoms worsen or persist or if there are any questions or concerns that arise at home. 08/28 08:37 Order name: Flu; Complete Time: 09:23 kb 08/28 08:37 Order name: Strep; Complete Time: 09:12 kb 08/28 09:12 Order name: Throat Culture EDMS Administered Medications: No medications were administered Disposition: 10:39 Co-signature as Attending Physician, Sree Ramon MD I agree with the assessment and kdr plan of care. Disposition: 08/28/19 09:25 Discharged to Home. Impression: Acute pharyngitis. - Condition is Stable. - Discharge Instructions: Pharyngitis, [id number], Sore Throat, [id number]. - Medication Reconciliation Form, Thank You Letter, Antibiotic Education, Prescription Opioid Use form. - Follow up: Emergency Department; When: As needed; Reason: Worsening of condition. Follow up: Private Physician; When: 2 - 3 days; Reason: Recheck today's complaints, Continuance of care, Re-evaluation by your physician. Signatures: Dispatcher [employer] EDMS Ebony Gonzales, Sree Rivas MD MD [facility] Milly Evans RN RN ss Monserrat Dhaliwal RN RN ph Corrections: (The following items were deleted from the chart) 09:36 09:25 08/28/2019 09:25 Discharged to Home. Impression: Acute pharyngitis. Condition is ph Stable. Forms are Medication Reconciliation Form, Thank You Letter, Antibiotic Education, Prescription Opioid Use. Follow up: Emergency Department; When: As needed; Reason: Worsening of condition. Follow up: Private Physician; When: 2 - 3 days; Reason: Recheck today's complaints, Continuance of care, Re-evaluation by your physician. kb
[2019-08-28 10:53] VITALS: TEMP 98.4; O2SAT 98
[2019-08-28 10:54] VITALS: BP 106/74
== END 2019-08-28 09:36 | disposition home or self-care (01) ==
LOC: ER 08:12
DX: J02.9 Acute pharyngitis, unspecified (principal); Z88.1 Allergy status to other antibiotic agents; Z88.0 Allergy status to penicillin
CPT/HCPCS: 87070; 87081; 87804; 99283

== ENCOUNTER 2019-12-15 03:38 | Emergency (ER) | payer MEDICAID ==
--- OUTSIDE RECORDS SUMMARY | 2019-12-15 03:40 | XMS REPORT | Summary of Care ---
:1990 Author Organization [address] [address] Care Team Providers Name Role Phone Yamil Hamilton MD Insurance Hmo Unavailable Chandni Starks [facility] Provider Reason for Visit Reason Comments Notification Encounter Details Date Type Department Care Team Description 10/19/2019 Telephone [facility] Dermatology- Sharlene Chance Notification [address] [place] [address] [place] [address] [place] [address] Allergies Active Allergy Reactions Severity Noted Date Comments Amoxicillin Itching 01/13/2018 Penicillins Itching 11/13/2015 Sulfa (Sulfonamide Antibiotics) Itching 6 documented as of this encounter (statuses as of 10/20/2019) Medications Medication Sig Dispensed Refills Start Date End Date Status ferrous sulfate 325 mg Take 1 tablet by 60 tablet 2 11/29/2017 Active (65 mg iron) tablet mouth 2 (two) times daily. documented as of this encounter (statuses as of 10/20/2019) Active Problems Problem Noted Date Trichomonal vulvovaginitis 04/03/2018 Well woman exam 01/13/2018 IUD (intrauterine device) in place 01/13/2018 Over weight 01/13/2018 LGSIL on Pap smear of cervix 12/22/2017 Overview: See scanned records 07/20, will need kemal t for colpo 6 weeks pp Hernia, umbilical 04/09/2016 Overview: Diagnosed in the ER documented as of this encounter (statuses as of 10/20/2019) Resolved Problems Problem Noted Date Resolved Date Routine follow-up 12/22/2017 01/13/2018 39 weeks gestation of 11/28/2017 12/23/19 18 delivery delivered 11/28/2017 12/22/2017 Overview: 07/2016 see scanned records History of section 11/26/2017 12/22/2017 Tobacco use during 11/26/2017 12/22/2017 Round ligament pain 04/04/2016 11/26/2017 Shoulder pain 03/07/2016 11/26/2017 Vaginal bleeding before 22 weeks gestation 01/11/2016 11/26/2017 Multiparity 11/28/2015 12/22/2017 Supervision of high risk , antepartum 11/28/2015 12/22/2017 History of gestational diabetes in prior , currentl y 11/28/2015 12/22/2017 Headache in , antepartum 11/28/20152017 documented as of this encounter (statuses as of 10/20/2019) Immunizations Name Administration Dates Next Due Influenza Virus Vaccine Quad IM 3+ YRS 11/28/2015 Tdap 11/26/2017 documented as of this encounter Social History Tobacco Use Types Packs/Day Years Used Date Current Every Day Smoker 6 Sta rted: 01/13/2010 Smokeless Tobacco: Never Used Comments: 1/2 a pack a day Alcohol Use Drinks/Week oz/Week Comments No 0 Standard drinks or equivalent 0.0 Sex Assigned at Date Recorded Not on file Job Start Date Occupation Industry Not on file Not on file Not on file Travel History Travel Start Travel End No recent travel history available. documented as of this encounter Last Filed Vital Signs Not on filedocumented in this encounter Plan of Treatment Date Type Specialty Care Team Description 10/25/2019 Office Visit Dermatology Rachelle Nascimento MD [address] [facility] [address] [place] [address] [phone] Sharlene Cruz [address] [facility] [place] [phone] Health Maintenance Due Date Last Done Comments PAP SMEAR 11/27/2018 11/28/2015 INFLUENZA VACCINE (#1) 2019 11/28/2015 DTaP,Tdap,and Td Vaccines (2 - Td) 11/27/2027 11/26/2017 PNEUMOCOCCAL 0-64 YEARS COMBINED Aged Out No longer eligible based on SERIES patient's age to complete this topic documented as of this encounter Results Not on filedocumented in this encounter Insurance Payer Benefit Plan Subscriber ID Effective Phone Address Typ e / Group Dates [facility] x[facility] 2018-Prese [phone] [address] Medicaid WOMEN nt [address] [place] [address] documented as of this encounter Advance Directives Name Relationship Healthcare Agent Relationship Co mmunication Ann Mcqueen Sibling Primary healthcare agent ([place])
--- OUTSIDE RECORDS SUMMARY | 2019-12-15 03:40 | XMS REPORT ---
:1990 Author Organization [facility] t Address [address] [place] [address] Care Team Providers Name Role Phone Nancy Attending Clinician Problems This patient has no known problems. Allergies, Adverse Reactions, Alerts This patient has no known allergies or adverse reactions. Medications This patient has no known medications. Procedures This patient has no known procedures. Encounters Start End Encounter Admission Attending Care Care Encounter Source Date/Time Date/Time Type Type Clinicians Facility Department ID 2019-10-27 2019-10-27 Telephone CHAVO Cruz [id number] 00:00:00 00:00:00 Sharlene [facility] [id number] [facility] [id number] [place] [id number] [facility] Results This patient has no known results.
--- OUTSIDE RECORDS SUMMARY | 2019-12-15 03:40 | XMS REPORT | Summary of Care ---
:1990 Author Organization [facility] Address [address] [place] [address] Care Team Providers Name Role Phone Yamil Hamilton MD Insurance Hmo Unavailable Chandni Starks [facility] Reason for Visit Reason Comments Rash Encounter Details Date Type Department Care Team Description 10/25/2019 Telemedicine Visit [facility] Rachelle Nascimento MD [address] [place] [address] [id number] [place] [address] [phone] Dyshidrosis Dermatology- Sharlene Cruz [address] [place] [address]. [place] [phone] (Primary Dx) [facility] [address] [place] [address], 5th [place] [address] Allergies Active Allergy Reactions Severity Noted Date Comments Amoxicillin Itching 01/13/2018 Penicillins Itching 11/13/2015 Sulfa (Sulfonamide Antibiotics) Itching 6 documented as of this encounter (statuses as of 10/25/2019) Medications Medication Sig Dispensed Refills Start Date End Date Status ferrous sulfate 325 mg Take 1 tablet by 60 tablet 2 11/29/2017 Active (65 mg iron) tablet mouth 2 (two) times daily. aug betamethasone Apply to 50 g 3 10/25/2019 A ctive dipropionate 0.05 % area(s) 2 (two) ointmentIndications: times daily. Dyshidrosis documented as of this encounter (statuses as of 10/25/2019) Active Problems Problem Noted Date Trichomonal vulvovaginitis 04/03/2018 Well woman exam 01/13/2018 IUD (intrauterine device) in place 01/13/2018 Over weight 01/13/2018 LGSIL on Pap smear of cervix 12/22/2017 Overview: See scanned records 07/20, will need kemal t for colpo 6 weeks pp Hernia, umbilical 04/09/2016 Overview: Diagnosed in the ER documented as of this encounter (statuses as of 10/25/2019) Resolved Problems Problem Noted Date Resolved Date [...] as of this encounter (statuses as of 10/25/2019) Immunizations Name Administration Dates Next Due Influenza [...] Signs Not on filedocumented in this encounter Progress Notes Sharlene Cruz - 10/25/2019 3:00 PM CDT Chief Complaint: rash History of Present Illness: Of note, this encounter was performed via teleheath. The patient was located at a store and physicians in the office at [facility] Dermatology at [facility] in [place], [place]. Verbal consent was obtained for telehealth services provided below. This encounter included telephone with audio and video via [employer]. A total of 35 minutes was spent on the telephone. Mansi Mcqueen is a 28 year old female here for evaluation of: - a rash on her hand, present for 3 months. Admits to pruritus. States she gets blisters on her hands and also scaly plaques. She has seen her PCP for it 5-6 times and has changed to dove soap and conditioner. Then she switched to jerry and jerry baby shampoo and wash. She has had a course of PO steroids. She is currently using ketoconazole cream BID for 2-3 weeks and using an OTC eczema moisturizer which does not help. Denies pain or pruritus. No attempted treatments. Social History: lives in [place] (+) = positive (-) = negative Review of Systems: Constitutional: (-) pain Integumentary: (+) itching (-) color change (-) growth (+) rash Hem/Lymph: (-) bleeding Past Medical History: Diagnosis Date Anemia 07/2017 ongoing, taking iron supplements LGSIL on Pap smear of cervix 12/22/2017 Trichomonal vulvovaginitis 04/03/2018 Current Outpatient Medications on File Prior to Visit Medication Sig Dispense Refill ferrous sulfate 325 mg (65 mg iron) tablet Take 1 tablet by mouth 2 (two) times daily. 60 tablet2 No current facility-administered medications on file prior to visit. Past Surgical History: Procedure Laterality Date SECTION 07/24/2016 SECTION N/A 11/28/2017 Surgeon: Herman Nieves MD; Location: Labor and Delivery - [place] Family History Problem Relation Age of Onset Cancer Father Cancer Brother Cancer Maternal Grandfather Arthritis Mother Other - see comments Sister 30 HIV positive, 2011 Asthma NoFHx defects NoFHx Breast Cancer NoFHx Colon Cancer NoFHx Ovarian Cancer NoFHx Uterine Cancer NoFHx Depression NoFHx Diabetes NoFHx Genetic NoFHx Heart NoFHx High cholesterol NoFHx Hypertension NoFHx Mental retardation NoFHx Neurological NoFHx Osteoporosis NoFHx Psychiatry NoFHx Social History Socioeconomic History Marital status: Single Spouse name: Not on file Number of children: 2 Years of education: Not on file Highest education level: Not on file Occupational History Not on file Social Needs Financial resource strain: Not on file Food insecurity: Worry: Not on file Inability: Not on file Transportation needs: Medical: Not on file Non-medical: Not on file Tobacco Use Smoking status: Current Every Day Smoker Years: 6.00 Start date: 01/13/2010 Smokeless tobacco: Never Used Tobacco comment: 1/2 a pack a day Substance and Sexual Activity Alcohol use: No Alcohol/week: 0.0 standard drinks Drug use: No Sexual activity: Yes Partners: Male control/protection: None Comment: last sexual intercourse 11/2017 Lifestyle Physical activity: Days per week: Not on file Minutes per session: Not on file Stress: Not on file Relationships Social connections: Talks on phone: Not on file Gets together: Not on file Attends anabaptism service: Not on file Active member of club or organization: Not on file Attends meetings of clubs or organizations: Not on file Relationship status: Not on file Intimate partner violence: Fear of current or ex partner: Not on file Emotionally abused: Not on file Physically abused: Not on file Forced sexual activity: Not on file Other Topics Concern Service Not Asked Blood Transfusions No Caffeine Concern Not Asked Occupational Exposure Not Asked Hobby Hazards Not Asked Sleep Concern Not Asked Stress Concern Not Asked Weight Concern Not Asked Special Diet Not Asked Back Care Not Asked Exercise Not Asked Bike Helmet Not Asked Seat Belt Not Asked Self-Exams Not Asked Social History Narrative No domestic violence or abuse. Pt states she feels safe at home. Pt states she has no anabaptism preference. Pt states she lives with and children. No pets in the home. Physical Exam There were no vitals filed for this visit. (-) = negative/no exam findings General: Awake, alert, no acute distress. Appears well-developed and well-nourished. Neurological/Psychiatric: Normal mood, affect, behavior, speech, and thought process. Skin: warm, dry FACE: Negative RIGHT ARM: See image LEFT ARM: Positive (-)=Negative,(+)=Positive Actinic Keratosis (A): erythematous scaling papules John Hemaniogioma (CH): smooth red and purple papules Dermatitis Erythema (DE): mild to moderate erythema and scaling Dermatitis Lichenified (DL): lichenification and thickening Dermatitis Weeping (DW): weeping and excoriation Inflamed Seborrheic Keratosis (ISK): inflamed warty brown papules and plaques Millium (ML): Small white cystic papule Molluscum Contagiosum (MC): umbilicated papule Nevus Macular (NM): well circumscribed evenly pigmented macule Nevus Papular (THUMB SEWER): well circumscribed evenly pigmented papule Psoriasis Circumscribed (PC): well circumscribed erythema and scaling Psoriasis Diffuse (PD): diffuse patches of erythema and scaling Seborrheic Keratosis (SK): verrucous brown papules and plaques Scar (SR): cicatricial change Verruca Vulgarus (W): warty hyperkeratotic papule Assessment and Plan 1. Dyshidrosis, bilateral hands - Discussed etiology, prognosis and treatment options with patient - Counseled pt about the chronic nature of this condition, tendency to flare, and need for CONSISTENT treatment - Start betamethasone 0.05% ointment BID, eRx refills sent - Reviewed side effects of medication and instructed not to use on face/axillae/groin - Daily emollients applied liberally - recommended Vaseline or Aquaphor - especially right after hands washed - Continue to avoid contacts to potential irritants and frequent hand washing if possible - Use cotton-lined gloves when prolonged contact with water or with irritating substances (washing dishes, cleaning, etc) Return in 2-3 months Sharlene Cruz MD Dermatology PGY-3 10/25/2019 1:47 PM documented in this encounter Plan of Treatment Health Maintenance Due Date Last Done Comments PAP SMEAR 11/27/2018 11/28/2015 INFLUENZA VACCINE (#1) 2019 11/28/2015 DTaP,Tdap,and Td Vaccines (2 - Td) 11/27/2027 11/26/2017 PNEUMOCOCCAL 0-64 YEARS COMBINED Aged Out No longer eligible based on SERIES patient's age to complete this topic documented as of this encounter Results Not on filedocumented in this encounter Visit Diagnoses Diagnosis Dyshidrosis - Primary documented in this encounter Advance Directives Name Relationship Healthcare Agent Relationship Co mmunication Ann Mcqueen Sibling Primary healthcare agent ([place])
--- OUTSIDE RECORDS SUMMARY | 2019-12-15 03:40 | XMS REPORT | Summary of Care ---
:1990 Author Organization [facility] Address [address] [place] [address] Care Team Providers Name Role Phone Yamil Hamilton MD Insurance Hmo Unavailable Chandni Starks [facility] Provider Reason for Visit Reason Comments Rash Encounter Details Date Type Department Care Team Description 10/25/2019 Telemedicine Visit [facility] Rachelle Nascimento MD [address] [place] [address] [id number] [place] [address] [phone] Dyshidrosis Dermatology- Sharlene Cruz [address] [place] [address]. [place] [phone] (Primary Dx) [facility] [address] [place] [address], 5th [place] [phone] Allergies Active Allergy Reactions Severity Noted Date Comments Amoxicillin Itching 01/13/2018 Penicillins Itching 11/13/2015 Sulfa (Sulfonamide Antibiotics) Itching 6 documented as of this encounter (statuses as of 10/26/2019) Medications Medication Sig Dispensed Refills Start Date End Date Status ferrous sulfate 325 Take 1 60 tablet 2 11/29/2017 Active mg (65 mg iron) tablet by tablet mouth 2 (two) times daily. aug betamethasone Apply to 50 g 3 10/26/2019 A ctive dipropionate 0.05 % area(s) 2 ointmentIndications (two) times : Dyshidrosis daily. aug betamethasone Apply to 50 g 3 10/25/2019 D iscontinued dipropionate 0.05 % area(s) 2 0 (Reorder) ointmentIndications (two) times : Dyshidrosis daily. documented as of this encounter (statuses as of 10/26/2019) Active Problems Problem Noted Date Trichomonal vulvovaginitis 04/03/2018 Well woman exam 01/13/2018 IUD (intrauterine device) in place 01/13/2018 Over weight 01/13/2018 LGSIL on Pap smear of cervix 12/22/2017 Overview: See scanned records 07/20, will need kemal t for colpo 6 weeks pp Hernia, umbilical 04/09/2016 Overview: Diagnosed in the ER documented as of this encounter (statuses as of 10/26/2019) Resolved Problems Problem Noted Date Resolved Date [...] as of this encounter (statuses as of 10/26/2019) Immunizations Name Administration Dates Next Due Influenza [...] store and physicians in the office at [facility] Dermatology at [facility] in [place], [place]. Verbal consent was obtained for telehealth services provided below. This encounter included telephone with audio and video via [employer]. A total of 35 minutes was spent [...] No attempted treatments. Social History: lives in [place] (+) = positive (-) = negative Review [...] Nieves MD; Location: Labor and Delivery - [place] Family History Problem Relation Age of Onset [...] file Gets together: Not on file Attends voodoo service: Not on file Active member of [...] at home. Pt states she has no voodoo preference. Pt states she lives with and [...] well circumscribed evenly pigmented macule Nevus Papular (EFFICIENCY CLERK): well circumscribed evenly pigmented papule Psoriasis Circumscribed [...] documented in this encounter Plan of Treatment Date Type Specialty Care Team Description 12/20/2019 Office Visit Dermatology Veronica Cruz [address] [place], [place] [phone] Health Maintenance Due Date Last Done Comments [...] mmunication Ann Mcqueen Sibling Primary healthcare agent ([place])
--- OUTSIDE RECORDS SUMMARY | 2019-12-15 03:41 | XMS REPORT | Summary of Care ---
:1990 Author Organization [facility] Address [address] [place] [address] Care Team Providers Name Role Phone Yamil Hamilton MD Insurance Hmo Unavailable Chandni Starks [facility] Provider Reason for Visit Reason Comments Medication Assistance Encounter Details Date Type Department Care Team Description 10/27/2019 Telephone [facility] Veronica Cruz Medication Assistance Dermatology, [address] [address] [facility] [phone] Entrance A, [address] [place] [address] Allergies Active Allergy Reactions Severity Noted Date Comments Amoxicillin Itching 01/13/2018 Penicillins Itching 11/13/2015 Sulfa (Sulfonamide Antibiotics) Itching 6 documented as of this encounter (statuses as of 11/08/2019) Medications Medication Sig Dispensed Refills Start Date End Date Status ferrous sulfate 325 Take 1 60 tablet 2 11/29/2017 Active mg (65 mg iron) tablet by tablet mouth 2 (two) times daily. aug betamethasone Apply to 50 g 3 10/27/2019 A ctive dipropionate 0.05 % area(s) 2 creamIndications: (two) times Dyshidrosis daily. aug betamethasone Apply to 50 g 3 10/26/2019 D iscontinued dipropionate 0.05 % area(s) 2 0 (Formulary ointmentIndications (two) times change) : Dyshidrosis daily. documented as of this encounter (statuses as of 11/08/2019) Active Problems Problem Noted Date Trichomonal vulvovaginitis 04/03/2018 Well woman exam 01/13/2018 IUD (intrauterine device) in place 01/13/2018 Over weight 01/13/2018 LGSIL on Pap smear of cervix 12/22/2017 Overview: See scanned records 07/20, will need kemal t for colpo 6 weeks pp Hernia, umbilical 04/09/2016 Overview: Diagnosed in the ER documented as of this encounter (statuses as of 11/08/2019) Resolved Problems Problem Noted Date Resolved Date [...] as of this encounter (statuses as of 11/08/2019) Immunizations Name Administration Dates Next Due Influenza [...] Description 12/20/2019 Office Visit Dermatology Veronica Cruz [address] [place], [place] [phone] Health Maintenance Due Date [...] Dyshidrosis - Primary documented in this encounter Insurance Payer Benefit Plan Subscriber ID Effective Phone Address Typ e / Group Dates [facility] xxxxxxxxx 2018-Camelia [phone] [address] Medicaid [place]OM[place] [id number] [place] [address] documented as of this encounter Advance Directives Name Relationship Healthcare Agent Relationship Co mmunication Ann Mcqueen Sibling Primary healthcare agent ([place])
--- OUTSIDE RECORDS SUMMARY | 2019-12-15 03:41 | XMS REPORT | Summary of Care ---
:1990 Author Organization [facility] Address [address] [place] [address] Care Team Providers Name Role Phone Yamil Hamilton MD Insurance Hmo Unavailable Chandni Starks [facility] Reason for Visit Reason Comments Medication Assistance Encounter Details Date Type Department Care Team Description 10/27/[address] [facility] Veronica Cruz Medication Assistance Dermatology, [address] [address] [facility] [phone] Entrance A, [address] [place] [address] Allergies Active Allergy Reactions Severity [...] Dermatology Veronica Cruz [address] [place], [place] [phone] Health Maintenance Due Date [...] Phone Address Typ e / Group Dates [facility] xxxxxxxxx 2018-Camelia [phone] [address] Medicaid WOMEN nt 00 [id number] [place] [address] documented as of this encounter Advance Directives Name Relationship Healthcare Agent Relationship Co mmunication Ann Mcqueen Sibling Primary healthcare agent ([place])
--- OUTSIDE RECORDS SUMMARY | 2019-12-15 03:41 | XMS REPORT | Summary of Care ---
:1990 Author Organization [facility] Address [address] [place] [address] Care Team Providers Name Role Phone Yamil Hamilton MD Insurance Hmo Unavailable Chandni Starks [facility] Reason for Visit Reason Comments Medication Assistance Encounter Details Date Type Department Care Team Description 10/27/2019 Telephone [facility] Veronica Cruz Medication Assistance Dermatology, [address] [address] [facility] [phone] Entrance A, [address] [place] [address] Allergies Active Allergy Reactions Severity Noted Date Comments Amoxicillin Itching 01/13/2018 Penicillins Itching 11/13/2015 Sulfa (Sulfonamide Antibiotics) Itching 6 documented as of this encounter (statuses as of 10/27/2019) Medications Medication Sig Dispensed Refills Start Date [...] as of this encounter (statuses as of 10/27/2019) Active Problems Problem Noted Date Trichomonal vulvovaginitis 04/03/2018 Well woman exam 01/13/2018 IUD (intrauterine device) in place 01/13/2018 Over weight 01/13/2018 LGSIL on Pap smear of cervix 12/22/2017 Overview: See scanned records 07/20, will need kemal t for colpo 6 weeks pp Hernia, umbilical 04/09/2016 Overview: Diagnosed in the ER documented as of this encounter (statuses as of 10/27/2019) Resolved Problems Problem Noted Date Resolved Date [...] as of this encounter (statuses as of 10/27/2019) Immunizations Name Administration Dates Next Due Influenza [...] Dermatology Veronica Cruz [address] [place], [place] [phone] Health Maintenance Due Date [...] Phone Address Typ e / Group Dates [facility] xxxxxxxxx 2018-Camelia [phone] [address] Medicaid [place]OMEN nt 00 [id number] [place] [address] documented as of this encounter Advance Directives Name Relationship Healthcare Agent Relationship Co mmunication Ann Mcqueen Sibling Primary healthcare agent [phone] ([place])
--- OUTSIDE RECORDS SUMMARY | 2019-12-15 03:41 | XMS REPORT | Summary of Care ---
:1990 Author Organization [facility] - [facility] Address [address] [place] [id number] Care Team Providers Name Role Phone Yamil Hamilton MD Insurance Hmo Unavailable Chandni Starks [facility] Reason for Visit Reason Comments Rash Encounter Details Date Type Department Care Team Description 10/25/2019 Telemedicine Visit [facility] Rachelle Nascimento MD [address] [place] [address] [id number] [place] [address] [phone] Dyshidrosis Dermatology- Sharlene Cruz [address] [place] [address]. [place] [phone] (Primary Dx) [facility] [address] [place] [address], 5th [place] [phone] Allergies Active Allergy Reactions Severity Noted Date Comments Amoxicillin Itching 01/13/2018 Penicillins Itching 11/13/2015 Sulfa (Sulfonamide Antibiotics) Itching 6 documented as of this encounter (statuses as of 11/01/2019) Medications Medication Sig Dispensed Refills Start Date End Date Status ferrous sulfate 325 Take 1 60 tablet 2 11/29/2017 Active mg (65 mg iron) tablet by tablet mouth 2 (two) times daily. mar betamethasone Apply to 50 g 3 10/25/2019 D iscontinued dipropionate 0.05 % area(s) 2 0 (Reorder) ointmentIndications (two) times : Dyshidrosis daily. aug betamethasone Apply to 50 g 3 10/26/2019 D iscontinued dipropionate 0.05 % area(s) 2 0 (Formulary ointmentIndications (two) times change) : Dyshidrosis daily. documented as of this encounter (statuses as of 11/01/2019) Active Problems Problem Noted Date Trichomonal vulvovaginitis 04/03/2018 Well woman exam 01/13/2018 IUD (intrauterine device) in place 01/13/2018 Over weight 01/13/2018 LGSIL on Pap smear of cervix 12/22/2017 Overview: See scanned records 07/20, will need kemal t for colpo 6 weeks pp Hernia, umbilical 04/09/2016 Overview: Diagnosed in the ER documented as of this encounter (statuses as of 11/01/2019) Resolved Problems Problem Noted Date Resolved Date [...] as of this encounter (statuses as of 11/01/2019) Immunizations Name Administration Dates Next Due Influenza [...] store and physicians in the office at [facility] Dermatology at [facility] in [place], [place]. Verbal consent was obtained for telehealth services provided below. This encounter included telephone with audio and video via [employer]. A total of 35 minutes was spent [...] No attempted treatments. Social History: lives in [place] (+) = positive (-) = negative Review [...] Nieves MD; Location: Labor and Delivery - [facility] [place] Family History Problem Relation Age of Onset [...] file Gets together: Not on file Attends jew service: Not on file Active member of [...] at home. Pt states she has no jew preference. Pt states she lives with and [...] well circumscribed evenly pigmented macule Nevus Papular (CELEBRITY CHEF ENTREPRENEUR MEDIA PERSONALITY): well circumscribed evenly pigmented papule Psoriasis Circumscribed [...] Description 12/20/2019 Office Visit Dermatology Veronica Cruz [address] [place] [address] [phone] Health Maintenance Due Date Last Done [...] mmunication Ann Mcqueen Sibling Primary healthcare agent [phone] ([place])
--- OUTSIDE RECORDS SUMMARY | 2019-12-15 03:41 | XMS REPORT | Summary of Care ---
:1990 Author Organization [facility] - [facility] Address [address] [place] [address] Care Team Providers Name Role Phone Yamil Hamilton MD Insurance Hmo Unavailable Chandni Starks [facility] Reason for Visit Reason Comments Rash Encounter Details Date Type Department Care Team Description 10/25/2019 Telemedicine Visit [facility] Rachelle Nascimento MD [address] [place] [address] [id number] [place] [address] [phone] Dyshidrosis Dermatology- Sharlene Cruz [address] [place] [address]. [place] [phone] (Primary Dx) [facility] [address] [place] [address], 5th [place] [phone] Allergies Active Allergy Reactions Severity Noted Date [...] store and physicians in the office at [facility] [place], [place]. Verbal consent was obtained for telehealth services provided below. This encounter included telephone with audio and video via [employer]. A total of 35 minutes was spent [...] No attempted treatments. Social History: lives in [place] (+) = positive (-) = negative Review [...] Nieves MD; Location: Labor and Delivery - [place] Family History Problem Relation Age of Onset [...] file Gets together: Not on file Attends anabaptist service: Not on file Active member of [...] at home. Pt states she has no anabaptist preference. Pt states she lives with and [...] well circumscribed evenly pigmented macule Nevus Papular ([employer]): well circumscribed evenly pigmented papule Psoriasis Circumscribed [...] Description 12/20/2019 Office Visit Dermatology Veronica Cruz [address] [place], [place] [phone] Health Maintenance Due Date [...] mmunication Ann Mcqueen Sibling Primary healthcare agent ([place])
--- OUTSIDE RECORDS SUMMARY | 2019-12-15 03:41 | XMS REPORT | Summary of Care ---
:1990 Author Organization [facility] Address [address] [place] [address] Care Team Providers Name Role Phone Yamil Hamilton MD Insurance Hmo Unavailable Chandni Starks [facility] Reason for Visit Reason Comments Medication Assistance Encounter Details Date Type Department Care Team Description 10/27/[address] [facility] Veronica Cruz Medication Assistance Dermatology, [address] [phone] [facility] [phone] Entrance A, [address] [place] [address] Allergies Active Allergy Reactions Severity [...] Dermatology Veronica Cruz [address] [place], [place] [phone] Health Maintenance Due Date [...] Phone Address Typ e / Group Dates [facility] xxxxxxxxx 2018-Camelia [phone] Medicaid [place]OMEN [address] [id number] [place] [address] documented as of this encounter Advance Directives Name Relationship Healthcare Agent Relationship Co mmunication Ann Mcqueen Sibling Primary healthcare agent ([place])
--- NOTE | 2019-12-15 04:31 | EDPHYS ---
Physician Documentation [facility] Name: Mansi Mcqueen Age: 29 yrs Sex: Female : 1990 Arrival Date: 12/15/2019 Time: 03:40 Bed 19 Private MD: ED Physician Jayden Jones HPI: 12/14 04:13 This 29 yrs old Female presents to ER via Ambulatory with complaints of Cough.rn 04:13 The patient or guardian reports cough. rn 04:13 Onset: The symptoms/episode began/occurred 2 week(s) ago. Severity of symptoms: At rn their worst the symptoms were mild, in the emergency department the symptoms are unchanged. Modifying factors: The symptoms are alleviated by nothing, the symptoms are aggravated by nothing. Associated signs and symptoms: The patient has no apparent associated signs or symptoms, Pertinent negatives: chest pain, fever. The patient has experienced similar episodes in the past. Reports cough for 2 weeks, not getting better or worse, no fever, + active smoker and states when she gets sick "cough sticks around for weeks". . 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 - Social history:: Smoking status: Patient reports the use of cigarette tobacco products, smokes one-half pack cigarettes per day. - Family history:: not pertinent. - Hospitalizations: : No recent hospitalization is reported. ROS: 04:13 Constitutional: Negative for fever, chills, and weight loss, Eyes: Negative for injury, rn pain, redness, and discharge, Neck: Negative for injury, pain, and swelling, Cardiovascular: Negative for chest pain, palpitations, and edema, Respiratory: + cough, neg for sob for hemoptysis Abdomen/GI: Negative for abdominal pain, nausea, vomiting, diarrhea, and constipation, MS/Extremity: Negative for injury and deformity, Skin: Negative for injury, rash, and discoloration, Neuro: Negative for headache, weakness, numbness, tingling, and seizure. Exam: 04:13 Constitutional: This is a well developed, well nourished patient who is awake, alert, rn and in no acute distress. Sitting upright. Mild cough that is sporadic. Head/Face: Normocephalic, atraumatic. Eyes: Pupils equal round, no periorbital swelling Cardiovascular: Regular rate and rhythm. No pulse deficits. Respiratory: Clear bilateral breath sounds, no wheezing, no retractions or labored breathing Skin: Warm, dry MS/ Extremity: Pulses equal, no cyanosis. Neuro: Awake and alert, GCS 15 Vital Signs: 03:47 BP 99 / 61; Pulse 89; Resp 18; Temp 98.4; Pulse Ox 99% ; Weight 73.94 kg; Height 5 ft. wh 9 in. (175.26 cm); 04:55 BP 101 / 71; Pulse 87; Resp 18; Pulse Ox 98% ; wh 03:47 Body Mass Index 24.07 (73.94 kg, 175.26 cm) wh MDM: 03:59 Patient medically screened. rn 04:28 Differential Diagnosis: Bronchitis Viral Syndrome Pneumonia. Data reviewed: vital rn signs, nurses notes, radiologic studies, plain films, and as a result, I will discharge patient. Test interpretation: by ED physician or midlevel provider: plain radiologic studies, CXR shows prominence of basilar interstitial lung markings. Counseling: I had a detailed discussion with the patient and/or guardian regarding: the historical points, exam findings, and any diagnostic results supporting the discharge/admit diagnosis, radiology results, the need for outpatient follow up, to return to the emergency department if symptoms worsen or persist or if there are any questions or concerns that arise at home. Special discussion: I discussed with the patient/guardian in detail that at this point there is no indication for admission to the hospital. It is understood, however, that if the symptoms persist or worsen the patient needs to return immediately for re-evaluation. Based on the history and exam findings, there is no indication for further emergent testing or inpatient evaluation. I discussed with the patient/guardian the need to see the primary care provider for further evaluation of the symptoms. ED course: Prominent interstitial pattern at bases of lungs, possibly just related to smoking but given to preivous cxr to compare too and length of symptoms, will cover with abx and test for COVID-19. Does not require oxygen or admission.. 04:31 Counseling: I had a detailed discussion with the patient and/or guardian regarding: rn smoking cessation. 12/14 04:31 Order name: COVID-19 rn 12/14 03:59 Order name: XRAY Chest (1 view) rn Administered Medications: No medications were administered Disposition: 12/15/19 04:30 Discharged to Home. Impression: Bronchitis, not specified as acute or chronic. - Condition is Stable. - Discharge Instructions: Acute Bronchitis, Adult, Cough, Adult. - Prescriptions for Zithromax Z- Jayseh 250 mg Oral Tablet - take 1 tablet by ORAL route as directed for 5 days Day 1 - take two (2) tablets one time. Day 2, 3, 4 , 5 take one (1) tablet once daily.; 6 tablet. - Medication Reconciliation Form, Thank You Letter, Antibiotic Education, Prescription Opioid Use form. - Follow up: Private Physician; When: As needed; Reason: Recheck today's complaints, Re-evaluation by your physician. - Problem is an ongoing problem. - Symptoms are unchanged. Signatures: Dispatcher [employer] EDMS Jayden Jones MD MD rn Habalo, Winsy Corrections: (The following items were deleted from the chart) 04:56 04:30 12/15/2019 04:30 Discharged to Home. Impression: Bronchitis, not specified as wh acute or chronic. Condition is Stable. Forms are Medication Reconciliation Form, Thank You Letter, Antibiotic Education, Prescription Opioid Use. Follow up: Private Physician; When: As needed; Reason: Recheck today's complaints, Re-evaluation by your physician. Problem is an ongoing problem. Symptoms are unchanged. rn
--- NOTE | 2019-12-15 04:31 | ER ---
Nurse's Notes [facility] Name: Mansi Mcqueen Age: 29 yrs Sex: Female : 1990 Arrival Date: 12/15/2019 Time: 03:40 Bed 19 Private MD: Diagnosis: Bronchitis, not specified as acute or chronic Presentation: 12/14 03:47 Chief complaint: Patient states: C/O cough for two weeks now but denies fever or wh shortness of breath. Denies any contact with PUI or travel outside the country. Coronavirus screen: Surgical mask placed on patient. Patient moved to private room, placed in contact and droplet isolation with eye protection until further assessment. Patient reports a cough. Patient denies shortness of breath or difficulty breathing. Patient denies measured and/or subjective temperature greater than 100.4F prior to today's visit. Patient denies travel on a cruise ship or to a country the [facility] currently lists as an affected area. Patient denies contact with known and/or suspected case of COVID-19. Ebola Screen: Patient negative for fever greater than or equal to 101.5 degrees Fahrenheit, and additional compatible Ebola Virus Disease symptoms Patient denies exposure to infectious person. Initial Sepsis Screen: Does the patient meet any 2 criteria? No. Patient's initial sepsis screen is negative. Does the patient have a suspected source of infection? Yes: Productive cough/pneumonia. Risk Assessment: Do you want to hurt yourself or someone else? Patient reports no desire to harm self or others. Onset of symptoms is unknown. 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 - Social history:: Smoking status: Patient reports the use of cigarette tobacco products, smokes one-half pack cigarettes per day. - Family history:: not pertinent. - Hospitalizations: : No recent hospitalization is reported. Screenin:51 Abuse screen: Denies threats or abuse. Denies injuries from another. Nutritional screening: No deficits noted. Tuberculosis screening: No symptoms or risk factors identified. Fall Risk None identified. Assessment: 03:52 General: Appears in no apparent distress. Behavior is calm, cooperative, appropriate wh for age. Pain: Complains of pain in sore throat. Neuro: Level of Consciousness is awake, alert, obeys commands, Oriented to person, place, time, situation, Appropriate for age. Cardiovascular: Heart tones S1 S2. Respiratory: Reports cough that is Airway is patent Respiratory effort is even, unlabored, Respiratory pattern is regular, symmetrical, Breath sounds are clear bilaterally. GI: Abdomen is flat, non-distended. : No signs and/or symptoms were reported regarding the genitourinary system. EENT: Throat is pink. Derm: Skin is intact, is healthy with good turgor, Skin is pink, warm \T\ dry. normal. Musculoskeletal: Circulation, motion, and sensation intact. 04:55 Reassessment: Patient appears in no apparent distress at this time. No changes from previously documented assessment. Patient and/or family updated on plan of care and expected duration. Pain level reassessed. Patient is alert, oriented x 3, equal unlabored respirations, skin warm/dry/pink. Vital Signs: 03:47 BP 99 / 61; Pulse 89; Resp 18; Temp 98.4; Pulse Ox 99% ; Weight 73.94 kg; Height 5 ft. wh 9 in. (175.26 cm); 04:55 BP 101 / 71; Pulse 87; Resp 18; Pulse Ox 98% ; wh 03:47 Body Mass Index 24.07 (73.94 kg, 175.26 cm) ED Course: 03:40 Patient arrived in ED. ag3 03:40 Candice Joshi is Primary Nurse. 03:51 Triage completed. 03:53 Arm band placed on right wrist. 03:53 Patient has correct armband on for positive identification. Bed in low position. Call light in reach. Side rails up X 1. Pulse ox on. NIBP on. 03:59 Jayden Jones MD is Attending Physician. rn 04:41 XRAY Chest (1 view) In Process Unspecified. EDMS 04:55 No provider procedures requiring assistance completed. Patient did not have IV access during this emergency room visit. Administered Medications: No medications were administered Outcome: 04:30 Discharge ordered by . rios 04:55 Discharged to home ambulatory. 04:55 Condition: stable 04:55 Discharge instructions given to patient, Instructed on discharge instructions, follow up and referral plans. medication usage, POC Demonstrated understanding of instructions, follow-up care, medications, POC Prescriptions given X 1. 04:56 Patient left the ED. Addendum: 12/16/2019 16:22 Addendum: Other pt notified of negative COVID-19 swab results. Pt advised to remain in d m5 isolation until fever free for 72 hours without medication, to continue to monitor symptoms, and to return to the ED if symptoms worsen. Signatures: Dispatcher [employer] EDPamela Watkins, RN RN dm5 Jayden Jones MD MD rn Habalo, Candice Hedy Mortensen3
[2019-12-15 05:05] VITALS: TEMP 98.4
[2019-12-15 05:17] VITALS: BP 101/71; O2SAT 98
--- NOTE | 2019-12-15 07:45 | RAD REPORT ---
EXAM DESCRIPTION: Cameron Single View12/15/2019 4:40 am CLINICAL HISTORY: Cough COMPARISON: none FINDINGS: The lungs appear clear of acute infiltrate. The heart is normal size IMPRESSION: No acute abnormalities displayed
== END 2019-12-15 04:56 | disposition home or self-care (01) ==
LOC: ER 03:38
DX: J40 Bronchitis, not specified as acute or chronic (principal); Z20.828 Contact with and (suspected) exposure to other viral communicable diseases; F17.210 Nicotine dependence, cigarettes, uncomplicated; Z88.0 Allergy status to penicillin; Z88.1 Allergy status to other antibiotic agents
CPT/HCPCS: 71045; 99283; U0001

== ENCOUNTER 2023-02-01 12:58 | Emergency (ER) | payer OTHER ==
--- OUTSIDE RECORDS SUMMARY | 2023-02-01 13:01 | XMS REPORT | Continuity of Care Document ---
:1990 Author Organization [facility] t Address [address] [facility] [address] [place] [address] Care Team Providers Name Role Phone RAINA MCCANN Attending Clinician Unavailable Doctor Unassigned, [place] Attending Clinician Unavailable Yvonne Childers Attending Clinician YVONNE DAVIDSON Attending Clinician Unavailable Raina Montoya Attending Clinician [phone] RACHELLE NASCIMENTO Attending Clinician Unavailable Sharlene Cruz Attending Clinician Rachelle Nascimento MD Attending Clinician Payers Payer Name Policy Type Policy Number Effective Date Expiration Date [facility] [id number] 2019 MEDICAID 00:00:00 Problems Condition Condition Condition Status Onset Resolution Last Treating Co mments Source Name Details Category Date Date Treatment Clinician Date Trichomona Trichomona Disease Active 2018-0 U nivers l l 8-31 ity of [place]ov[place] [facility] [facility] [facility] Encounter Encounter Disease Active Uni vers for IUD for IUD 6-12 ity of removal removal 00:00: [place] [facility] IUD IUD Disease Active Univers (intrauter (intrauter 6-12 it y of ine ine 00:00: [place] device) in device) in [address] Branch Over Over Disease Active Univers weight weight 6-12 ity of 00:00: [place] [facility] LGSIL on LGSIL on Disease Active Overview: Un davida Pap smear Pap smear - See ity of of cervix of cervix 00:00: scanned Eric as 00 records Medical 07/20, Branch will need appt for colpo 6 weeks pp Hernia, Hernia, Disease Active Overview: Univ ers umbilical umbilical 04-09 Diagnosed i ty of 00:00: in the ER [place] [facility] Allergies, Adverse Reactions, Alerts Allergy Allergy Status Severity Reaction(s) Onset Inactive Treating Comm ents Source Name Type Date Date Clinician AMOXICIL DRUG Active ITCHING Univers SAI INGREDI 6-12 ity of 00:00: [place] [facility] Amoxicil Propensi Active Itching Unive rs sai ty to 6-12 ity of adverse 00:00: [place] reaction Medical s Branch PENICILL Drug Active ITCHING Univers INS Class 4-11 ity of 00:00: [place] [facility] SULFA Drug Active ITCHING Univers (SULFONA Class 4-11 ity of MIDE 00:00: [place] ANTIBIOT 00 Medical ICS) Branch Penicill Propensi Active Itching Unive rs ins ty to 4-11 ity of adverse 00:00: [place] reaction 00 Medical s Branch Sulfa Propensi Active Itching Univers (Sulfona ty to 4-11 ity of mide adverse 00:00: [place] Antibiot reaction 00 Medica l ics) s Branch Social History Social Habit Start Date Stop Date Quantity Comments Source History of 2010-01-13 Smoker University of tobacco use 00:00:00 [facility] Sex Assigned At Universit y of [facility] Exposure to Not sure [place] of SARS-CoV-2 [place] [facility] (event) Branch Tobacco use and 2020-05-02 2020-05-02 Never used Universit y of exposure 00:00:00 00:00:00 [facility] Alcohol intake 2020-05-02 2020-05-02 Current University of 00:00:00 00:00:00 non-drinker of [facility] alcohol Branch (finding) Tobacco Comment 2018-01-13 2018-01-13 1/2 a pack a day Uni versity of 00:00:00 00:00:00 [facility] Smoking Status Start Date Stop Date Source Current every day smoker 2020-05-02 00:00:00 Uni versity of [facility] Medications Ordered Filled Start Stop Current Ordering Indication Dosage Frequency Signature Comments Components Source Medication Medication Date Date Medication? Clinician (SIG) Name Name metroNIDAZO 2019- 2020- No [id number] 500mg Take 1 Univers LE (FLAGYL) 0-02 10-10 tablet by it y of 500 mg 00:00: 04:59 mouth 2 [place] tablet 00 :00 (two) Medical times [place] daily for 7 days. fluconazole 2020-0 Yes Univer s 150 mg 9-25 ity of tablet 00:00: [address] fluconazole 2020-0 Yes Univer s 150 mg 9-25 ity of tablet 00:00: [address] fluconazole 2020-0 Yes Univer s 150 mg 9-25 ity of tablet 00:00: [address] fluconazole 2020-0 Yes Univer s 150 mg 9-25 ity of tablet 00:00: [address] fluconazole 2020-0 Yes Univer s 150 mg 9-25 ity of tablet 00:00: [address] metroNIDAZO 2020-0 Yes 500mg Take 500 U nivers LE 500 mg 8-21 mg by ity of tablet 00:00: mouth 2 [place] 00 (two) Medical times Branch daily. metroNIDAZO 2020-0 Yes 500mg Take 500 U nivers LE 500 mg 8-21 mg by ity of tablet 00:00: mouth 2 [place] 00 (two) Medical times Branch daily. metroNIDAZO 2020-0 Yes 500mg Take 500 U nivers LE 500 mg 8-21 mg by ity of tablet 00:00: mouth 2 [place] 00 (two) Medical times Branch daily. metroNIDAZO 2020-0 2020- No 500mg Take 500 Univers LE 500 mg 8-21 10-02 mg by ity of tablet 00:00: 00:00 mouth 2 [place] 00 :00 (two) Medical times Branch daily. levonorgest 2020-0 Yes [id number] 1{tbl} Take 1 Univers rel-ethinyl 8-19 tablet by ity of estradiol 00:00: mouth [place] (SRONYX) 00 daily. Medical 0.1-20 Branch mg-mcg per tablet levonorgest 2020-0 Yes [id number] 1{tbl} Take 1 Univers rel-ethinyl 8-19 tablet by ity of estradiol 00:00: mouth [place] (SRONYX) 00 daily. Medical 0.1-20 Branch mg-mcg per tablet levonorgest 2020-0 Yes [id number] 1{tbl} Take 1 Univers rel-ethinyl 8-19 tablet by ity of estradiol 00:00: mouth [place] (SRONYX) 00 daily. Medical 0.1-20 Branch mg-mcg per tablet levonorgest 2020-0 Yes [id number] 1{tbl} Take 1 Univers rel-ethinyl 8-19 tablet by ity of estradiol 00:00: mouth [place] (SRONYX) 00 daily. Medical 0.1-20 Branch mg-mcg per tablet levonorgest 2020-0 Yes [id number] 1{tbl} Take 1 Univers rel-ethinyl 8-19 tablet by ity of estradiol 00:00: mouth [place] (SRONYX) 00 daily. Medical 0.1-20 Branch mg-mcg per tablet levonorgest 2020-0 Yes [id number] 1{tbl} Take 1 Univers rel-ethinyl 8-19 tablet by ity of estradiol 00:00: mouth [place] (SRONYX) 00 daily. Medical 0.1-20 Branch mg-mcg per tablet levonorgest 2020-0 Yes [id number] 1{tbl} Take 1 Univers rel-ethinyl 8-19 tablet by ity of estradiol 00:00: mouth [place] (SRONYX) 00 daily. Medical 0.1-20 Branch mg-mcg per tablet mar 2020 Yes [id number] Apply to Univ ers betamethaso 3-25 area(s) 2 ity of ne 00:00: (two) [place] dipropionat 00 times Medical e 0.05 % daily. Branch cream mar 2020 Yes [id number] Apply to Univ ers betamethaso 3-25 area(s) 2 ity of ne 00:00: (two) [place] dipropionat 00 times Medical e 0.05 % daily. Branch cream mar 2020 Yes [id number] Apply to Univ ers betamethaso 3-25 area(s) 2 ity of ne 00:00: (two) [place] dipropionat 00 times Medical e 0.05 % daily. Branch cream mar 2020 Yes [id number] Apply to Univ ers betamethaso 3-25 area(s) 2 ity of ne 00:00: (two) [place] dipropionat 00 times Medical e 0.05 % daily. Branch cream mar 2020 Yes [id number] Apply to Univ ers betamethaso 3-25 area(s) 2 ity of ne 00:00: (two) [place] dipropionat 00 times Medical e 0.05 % daily. Branch cream mar 2020 Yes [id number] Apply to Univ ers betamethaso 3-25 area(s) 2 ity of ne 00:00: (two) [place] dipropionat 00 times Medical e 0.05 % daily. Branch cream mar 2020 Yes [id number] Apply to Univ ers betamethaso 3-25 area(s) 2 ity of ne 00:00: (two) [place] dipropionat 00 times Medical e 0.05 % daily. Branch cream mar 2020 Yes [id number] Apply to Univ ers betamethaso 3-25 area(s) 2 ity of ne 00:00: (two) [place] dipropionat 00 times Medical e 0.05 % daily. Branch cream mar 2020 Yes [id number] Apply to Univ ers betamethaso 3-25 area(s) 2 ity of ne 00:00: (two) [place] dipropionat 00 times Medical e 0.05 % daily. Branch cream mar 2020 Yes [id number] Apply to Univ ers betamethaso 3-25 area(s) 2 ity of ne 00:00: (two) [place] dipropionat 00 times Medical e 0.05 % daily. Branch cream mar 2020 Yes [id number] Apply to Univ ers betamethaso 3-25 area(s) 2 ity of ne 00:00: (two) [place] dipropionat 00 times Medical e 0.05 % daily. Branch cream mar 2020 Yes [id number] Apply to [facility] ers betamethaso 3-25 area(s) 2 ity of ne 00:00: (two) [place] dipropionat 00 times Medical e 0.05 % daily. Branch cream mar 2020 Yes [id number] Apply to [facility] ers betamethaso 3-25 area(s) 2 ity of ne 00:00: (two) [place] dipropionat 00 times Medical e 0.05 % daily. Branch cream mar 2020 Yes [id number] Apply to [facility] ers betamethaso 3-25 area(s) 2 ity of ne 00:00: (two) [place] dipropionat 00 times Medical e 0.05 % daily. Branch cream mar 2020 Yes [id number] Apply to [facility] ers betamethaso 3-24 area(s) 2 ity of ne 00:00: (two) [place] dipropionat 00 times Medical e 0.05 % daily. Branch ointment mar 2020 Yes [id number] Apply to [facility] ers betamethaso 3-24 area(s) 2 ity of ne 00:00: (two) [place] dipropionat 00 times Medical e 0.05 % daily. Branch ointment mar 20202019- No [id number] Apply to Uni vers betamethaso 3-24 03-25 area(s) 2 it y of ne 00:00: 00:00 (two) [place] dipropionat 00 :00 times Medical e 0.05 % daily. Branch ointment mar 20202019- No [id number] Apply to Uni vers betamethaso 3-24 03-25 area(s) 2 it y of ne 00:00: 00:00 (two) [place] dipropionat 00 :00 times Medical e 0.05 % daily. Branch ointment mar 2020 2020- No [id number] Apply to Uni vers betamethaso 3-24 03-25 area(s) 2 it y of ne 00:00: 00:00 (two) [place] dipropionat 00 :00 times Medical e 0.05 % daily. Branch ointment mar 20202019- No [id number] Apply to Uni vers betamethaso 3-24 03-25 area(s) 2 it y of ne 00:00: 00:00 (two) [place] dipropionat 00 :00 times Medical e 0.05 % daily. Branch ointment mar 20202019- No [id number] Apply to Uni vers betamethaso 10-25 area(s) 2 it y of ne 00:00: 00:00 (two) [place] dipropionat 00 :00 times Medical e 0.05 % daily. Branch ointment mar 2020 Yes [id number] Apply to [facility] ers betamethaso 10-24 area(s) 2 ity of ne 00:00: (two) [place] dipropionat 00 times Medical e 0.05 % daily. Branch ointment mar 20202019- No [id number] Apply to Uni vers betamethaso 3-10-25 area(s) 2 it y of ne 00:00: 00:00 (two) [place] dipropionat 00 :00 times Medical e 0.05 % daily. Branch ointment mar 20202019- No [id number] Apply to Uni vers betamethaso 10-24 area(s) 2 it y of ne 00:00: 00:00 (two) [place] dipropionat 00 :00 times Medical e 0.05 % daily. Branch ointment mar 20202019- No [id number] Apply to Uni vers betamethaso 10-24 area(s) 2 it y of ne 00:00: 00:00 (two) [place] dipropionat 00 :00 times Medical e 0.05 % daily. Branch ointment ferrous 2018-0 Yes 325mg Take 1 Univers sulfate 325 4-28 tablet by ity of mg (65 mg 00:00: mouth 2 [place] iron) 00 (two) Medical tablet times Branch daily. ferrous 2018-0 Yes 325mg Take 1 Univers sulfate 325 4-28 tablet by ity of mg (65 mg 00:00: mouth 2 [place] iron) 00 (two) Medical tablet times Branch daily. ferrous 2018-0 Yes 325mg Take 1 Univers sulfate 325 4-28 tablet by ity of mg (65 mg 00:00: mouth 2 [place] iron) 00 (two) Medical tablet times Branch daily. ferrous 2018-0 Yes 325mg Take 1 Univers sulfate 325 4-28 tablet by ity of mg (65 mg 00:00: mouth 2 [place] iron) 00 (two) Medical tablet times Branch daily. ferrous 2018-0 Yes 325mg Take 1 Univers sulfate 325 4-28 tablet by ity of mg (65 mg 00:00: mouth 2 [place] iron) 00 (two) Medical tablet times Branch daily. ferrous 2018-0 Yes 325mg Take 1 Univers sulfate 325 4-28 tablet by ity of mg (65 mg 00:00: mouth 2 [place] iron) 00 (two) Medical tablet times Branch daily. ferrous 2018-0 Yes 325mg Take 1 Univers sulfate 325 4-28 tablet by ity of mg (65 mg 00:00: mouth 2 [place] iron) 00 (two) Medical tablet times Branch daily. ferrous 2018-0 Yes 325mg Take 1 Univers sulfate 325 4-28 tablet by ity of mg (65 mg 00:00: mouth 2 [place] iron) 00 (two) Medical tablet times Branch daily. ferrous 2018-0 Yes 325mg Take 1 Univers sulfate 325 4-28 tablet by ity of mg (65 mg 00:00: mouth 2 [place] iron) 00 (two) Medical tablet times Branch daily. ferrous 2018-0 Yes 325mg Take 1 Univers sulfate 325 4-28 tablet by ity of mg (65 mg 00:00: mouth 2 [place] iron) 00 (two) Medical tablet times Branch daily. ferrous 2018-0 Yes 325mg Take 1 Univers sulfate 325 4-28 tablet by ity of mg (65 mg 00:00: mouth 2 [place] iron) 00 (two) Medical tablet times Branch daily. ferrous 2018-0 Yes 325mg Take 1 Univers sulfate 325 4-28 tablet by ity of mg (65 mg 00:00: mouth 2 [place] iron) 00 (two) Medical tablet times Branch daily. ferrous 2018-0 Yes 325mg Take 1 Univers sulfate 325 4-28 tablet by ity of mg (65 mg 00:00: mouth 2 [place] iron) 00 (two) Medical tablet times Branch daily. ferrous 2018-0 Yes 325mg Take 1 Univers sulfate 325 4-28 tablet by ity of mg (65 mg 00:00: mouth 2 [place] iron) 00 (two) Medical tablet times Branch daily. ferrous 2018-0 Yes 325mg Take 1 Univers sulfate 325 4-28 tablet by ity of mg (65 mg 00:00: mouth 2 [place] iron) 00 (two) Medical tablet times Branch daily. ferrous 2018-0 Yes 325mg Take 1 Univers sulfate 325 4-28 tablet by ity of mg (65 mg 00:00: mouth 2 [place] iron) 00 (two) Medical tablet times Branch daily. ferrous 2018-0 Yes 325mg Take 1 Univers sulfate 325 4-28 tablet by ity of mg (65 mg 00:00: mouth 2 [place] iron) 00 (two) Medical tablet times Branch daily. ferrous 2018-0 Yes 325mg Take 1 Univers sulfate 325 4-28 tablet by ity of mg (65 mg 00:00: mouth 2 [place] iron) 00 (two) Medical tablet times Branch daily. ferrous 2018-0 Yes 325mg Take 1 Univers sulfate 325 4-28 tablet by ity of mg (65 mg 00:00: mouth 2 [place] iron) 00 (two) Medical tablet times Branch daily. Immunizations Ordered Filled Immunization Date Status Comments [facility] e Immunization Name Name [facility] 2017-11-26 Completed University of 00:00:00 [facility] TD 2017-11-26 Completed University of 00:00:00 [facility] TDAP 2017-11-26 Completed University of 00:00:00 [facility] TDAP 2017-11-26 Completed University of 00:00:00 [facility] TDAP 2017-11-26 Completed University of 00:00:00 [facility] TDAP 2017-11-26 Completed University of 00:00:00 [facility] TDAP 2017-11-26 Completed University of 00:00:00 [facility] TD 2017-11-26 Completed University of 00:00:00 [facility] Tdap 2017-11-26 Completed University of 00:00:00 [facility] Tdap 2017-11-26 Completed University of 00:00:00 [facility] Tdap 2017-11-26 Completed University of 00:00:00 [facility] Tdap 2017-11-26 Completed University of 00:00:00 [facility] Tdap 2017-11-26 Completed University of 00:00:00 [facility] Tdap 2017-11-26 Completed University of 00:00:00 [facility] Tdap 2017-11-26 Completed University of 00:00:00 [facility] Tdap 2017-11-26 Completed University of 00:00:00 [facility] Tdap 2017-11-26 Completed University of 00:00:00 [facility] TDAP 2017-11-26 Completed [facility] University of 00:00:00 [facility] Influenza Virus 2015-11-28 Completed Universit y of Vaccine Quad IM 3+ 00:00:00 [facility] Influenza Virus 2015-11-28 Completed Universit y of Vaccine Quad IM 3+ 00:00:00 [facility] Influenza Virus 2015-11-28 Completed Universit y of Vaccine [facility] IM 3+ 00:00:00 [facility] Influenza Virus 2015-11-28 Completed Universit y of Vaccine Quad IM 3+ 00:00:00 [facility] Influenza Virus 2015-11-28 Completed Universit y of Vaccine Quad IM 3+ 00:00:00 [facility] Influenza Virus 2015-11-28 Completed Universit y of Vaccine Quad IM 3+ 00:00:00 [facility] Influenza Virus 2015-11-28 Completed Universit y of Vaccine Quad IM 3+ 00:00:00 [facility] Influenza Virus 2015-11-28 Completed Universit y of Vaccine Quad IM 3+ 00:00:00 [facility] Influenza Virus 2015-11-28 Completed Universit y of Vaccine Quad IM 3+ 00:00:00 [facility] Influenza Virus 2015-11-28 Completed Universit y of Vaccine Quad IM 3+ 00:00:00 [facility] Influenza Virus 2015-11-28 Completed Universit y of Vaccine Quad IM 3+ 00:00:00 [facility] Influenza Virus 2015-11-28 Completed Universit y of Vaccine Quad IM 3+ 00:00:00 [facility] Influenza Virus 2015-11-28 Completed Universit y of Vaccine Quad IM 3+ 00:00:00 [facility] Influenza Virus 2015-11-28 Completed Universit y of Vaccine [facility] IM 3+ 00:00:00 [facility] Influenza Virus 2015-11-28 Completed Universit y of Vaccine Quad IM 3+ 00:00:00 [facility] Influenza Virus 2015-11-28 Completed Universit y of Vaccine Quad IM 3+ 00:00:00 [facility] Influenza Virus 2015-11-28 Completed Universit y of Vaccine Quad IM 3+ 00:00:00 [facility] Influenza Virus 2015-11-28 Completed Universit y of Vaccine Quad IM 3+ 00:00:00 [facility] Influenza Virus 2015-11-28 Completed Universit y of Vaccine Quad IM 3+ 00:00:00 [facility] Branch Vital Signs Vital Name Observation Time Observation Value Comments Source Systolic blood 2020-05-02 21:11:00 113 mm[Hg] Univer sity of pressure [place] [facility] Diastolic blood 2020-05-02 21:11:00 77 mm[Hg] Unive rsity of pressure [place] [facility] Heart rate 2020-05-02 21:11:00 79 /min Universi ty of [place] [facility] Body temperature 2020-05-02 21:11:00 36.67 Dannielle Univ ersity of [place] [facility] Respiratory rate 2020-05-02 21:11:00 16 /min Univ ersity of [place] [facility] Body height 2020-05-02 21:11:00 175.3 cm Universi ty of [place] [facility] Body weight 2020-05-02 21:11:00 70.818 kg Universi ty of [place] [facility] BMI 2020-05-02 21:11:00 23.06 kg/m2 Universi ty of [place] [facility] Systolic blood 2020-03-22 18:52:00 110 mm[Hg] Univer sity of pressure [place] [facility] Diastolic blood 2020-03-22 18:52:00 69 mm[Hg] Unive rsity of pressure [place] [facility] Heart rate 2020-03-22 18:52:00 74 /min Universi ty of [place] [facility] Body temperature 2020-03-22 18:52:00 36.5 Dannielle Univ ersity of [place] [facility] Respiratory rate 2020-03-22 18:52:00 16 /min Univ ersity of [place] [facility] Body height 2020-03-22 18:52:00 175.3 cm Universi ty of [place] [facility] Body weight 2020-03-22 18:52:00 71.668 kg Universi ty of [place] [facility] BMI 2020-03-22 18:52:00 23.33 kg/m2 Universi ty of [place] [facility] Systolic blood 2020-03-22 18:26:00 110 mm[Hg] Univer sity of pressure [place] [facility] Diastolic blood 2020-03-22 18:26:00 69 mm[Hg] Unive rsity of pressure [place] [facility] Heart rate 2020-03-22 18:26:00 74 /min Universi ty of [place] [facility] Body temperature 2020-03-22 18:26:00 36.5 Dannielle Univ ersity of [place] [facility] Respiratory rate 2020-03-22 18:26:00 16 /min Univ [facility] Body height 2020-03-22 18:26:00 175.3 cm [facility] Body weight 2020-03-22 18:26:00 71.668 kg [facility] BMI 2020-03-22 18:26:00 23.33 kg/m2 [facility] Procedures Procedure Date / Time Performed Performing Clinician Sour e CONSENT/REFUSAL FOR 2020-03-22 18:13:02 [facility] TREATMENT Encounters Start End Encounter Admission Attending Care Care Encounter Source Date/Time Date/Time Type Type Clinicians Facility Department ID 2020-06-22 2020-06-22 Outpatient R RAUDEL [facility] [id number] [facility] 13:15:00 13:15:00 RAINA marcelino o f [facility] 2020-05-24 2020-05-24 Orders Doctor ARGUETA [id number] Univers 00:00:00 00:00:00 Only Unassigned, MARIBELL [id number] ity of [place] [facility] [id number] Eric as [phone] [address] 2020-05-05 2020-05-05 Telephone [facility] [id number] Univers 00:00:00 00:00:00 Yvonne Sibley SEED YEAST OPERATOR [id number] it y of [facility] [id number] Eric as MATERNAL [id number] [facility] & CHILD [address] [place] [address] 2020-05-03 2020-05-03 Telephone [facility] [id number] Univers 00:00:00 00:00:00 Yvonne Sibley SEED YEAST OPERATOR [id number] it y of [facility] [id number] Eric as MATERNAL [phone] [facility] & [address] 2020-05-02 2020-05-02 Office [facility] [id number] Univers 16:05:47 16:37:55 Visit Yvonne Sibley SEED YEAST OPERATOR [id number] it y of [facility] [id number] Eric as MATERNAL [phone] [facility] ical & CHILD [address] [place] [address] 2020-05-02 2020-05-02 Outpatient R STUART [facility] [id number] Univers 16:00:00 16:00:00 YVONNE ryland [facility] 2020-03-22 2020-03-[address] [facility] [id number] Univers 13:43:37 14:34:12 Visit Raina Tariq SEED YEAST OPERATOR [id number] ity of [facility] [id number] Eric as MATERNAL [phone] [facility] ical & CHILD [address] [place] [address] 2020-03-22 2020-03-22 [facility] [id number] Univers 13:16:02 13:31:02 Visit Raina Tariq SEED YEAST OPERATOR [id number] [facility]y [facility] [id number] Eric as MATERNAL [phone] [facility] ical & CHILD [address] [place] [address] 2020-03-22 2020-03-22 Outpatient R RAUDEL [facility] [id number] Univers 13:00:00 13:00:00 RAINA marcelino o f [facility] 2020-03-22 2020-03-22 Orders Doctor ELLIE [id number] Univers 00:00:00 00:00:00 Only Unassigned, MARIBELL [id number] ity of [place] [facility] [id number] Eric as [phone] [address] 2019-12-20 2019-12-20 Outpatient R MIKAELA [facility] [id number] Univers 09:10:00 09:10:00 RACHELLE marcelino [facility] 2019-10-27 2019-10-[address] [facility] [id number] 00:00:00 00:00:00 Sharlene MULTISPEC [id number] [place]AL[place] [id number] CENTER [phone] [facility] 2019-10-27 2019-10-[address] [facility] [id number] Univers 00:00:00 00:00:00 Sharlene BESTPEC [id number] [place]y of [phone] [place] [address] Branch [facility] 2019-10-25 2019-10-26 Telemedici Sharlene Cruz [facility] 1. [id number] Univers 09:11:13 14:23:01 ne Visit Rachelle Nascimento [facility] [id number] ity of CL[place]ICS [id number] [phone] [place] [address] Branch 2019-10-25 2019-10-25 Outpatient R MIKAELA [facility] [id number] Univers 15:00:00 15:00:00 RACHELLE marcelino of [facility] 2019-10-19 2019-10-19 Telephone SERGIO Cruz [id number] Univers 00:00:00 00:00:00 JannyTalentBin [id number] ity of CL[id number] [phone] [place] [address] Branch Results This patient has no known results.
--- NOTE | 2023-02-01 13:20 | ER ---
Nurse's Notes [facility] Name: Mansi Mcqueen Age: 32 yrs Sex: Female : 1990 Arrival Date: 02/01/2023 Time: 12:58 Bed 12 Private MD: Diagnosis: Encounter for removal of sutures-2 cameron Presentation: 02/01 13:03 Chief complaint: Patient states: Here to have 2 cameron removed from head that were ss placed 6 days ago. Coronavirus screen: Client denies travel out of the [place] in the last 14 days. Ebola Screen: Patient denies exposure to infectious person. Patient denies travel to an Ebola-affected area in the 21 days before illness onset. Initial Sepsis Screen: Does the patient meet any 2 criteria? No. Patient's initial sepsis screen is negative. Does the patient have a suspected source of infection? No. Patient's initial sepsis screen is negative. Risk Assessment: Do you want to hurt yourself or someone else? Patient reports no desire to harm self or others. Onset of symptoms was January 2023. 13:03 Method Of Arrival: Ambulatory 13:03 Acuity: MASHA 4 ss Historical: - Allergies: 13:04 Amoxicillin; ss 13:04 Bactrim; ss 13:04 PENICILLINS; ss - PMHx: 13:04 Anemia; chronic uti; ss - Family history:: not pertinent. - Hospitalizations: : No recent hospitalization is reported. Assessment: 13:06 General: Appears in no apparent distress. comfortable, Behavior is calm, cooperative. ss Pain: Denies pain. Neuro: Level of Consciousness is awake, alert, obeys commands. Vital Signs: 13:03 BP 122 / 75; Pulse 77; Resp 15; Temp 98.1(TE); Pulse Ox 99% on R/A; Weight 83.91 kg; ss Height 5 ft. 9 in. ; Pain 0/10; 13:03 Body Mass Index 27.32 (83.91 kg, 175.26 cm) 13:03 Pain Scale: Adult ss ED Course: 13:00 Patient arrived in ED. ts1 13:03 Jayden Jones MD is Attending Physician. rn 13:04 Triage completed. ss 13:04 Arm band placed on left wrist. ss 13:06 Milly Travis, RN is Primary Nurse. ss 13:06 Patient has correct armband on for positive identification. Bed in low position. ss 13:06 No provider procedures requiring assistance completed. Patient did not have IV access ss during this emergency room visit. Administered Medications: No medications were administered Medication: 13:06 VIS not applicable for this client. ss Outcome: 13:19 Discharge ordered by . rn 13:24 Discharged to home ambulatory, with family. ss 13:24 Condition: good 13:24 Discharge instructions given to patient, Instructed on discharge instructions, follow up and referral plans. Demonstrated understanding of instructions, follow-up care, wound care. 13:25 Patient left the ED. ss Signatures: Jayden Jones MD MD rn Blanchard, Shelby, RN RN ss Simpson, Tanya, HAILE PAS ts1
--- NOTE | 2023-02-01 13:20 | EDPHYS ---
Physician Documentation [facility] Name: Mansi Mcqueen Age: 32 yrs Sex: Female : 1990 Arrival Date: 02/01/2023 Time: 12:58 Bed 12 Private MD: ED Physician Jayden Jones HPI: 02/01 13:16 This 32 yrs old Female presents to ER via Ambulatory with complaints of LEOLA REMOVED.rn 13:16 The patient has leola on the scalp. Previous treatment: The patient was initially rn treated 6 day(s) ago. Sutures/leola progress: The patient has no c/o's. The wound is well-healing with no redness, swelling, discharge, or dehiscence reported. The patient has not experienced similar symptoms in the past. Pt s/p staple placement 6 days ago, instructions were to come back 5 days after, no complications.. Historical: - Allergies: 13:04 Amoxicillin; ss 13:04 Bactrim; ss 13:04 PENICILLINS; ss - PMHx: 13:04 Anemia; chronic uti; ss - Family history:: not pertinent. - Hospitalizations: : No recent hospitalization is reported. ROS: 13:16 Constitutional: Negative for fever, chills, and weight loss, Skin: Well healed wound to rn scalp Exam: 13:16 Constitutional: This is a well developed, well nourished patient who is awake, alert, rn and in no acute distress. Head/Face: 2 leola left frontal scalp, well healed, no drainage or signs of infection Vital Signs: 13:03 BP 122 / 75; Pulse 77; Resp 15; Temp 98.1(TE); Pulse Ox 99% on R/A; Weight 83.91 kg; ss Height 5 ft. 9 in. ; Pain 0/10; 13:03 Body Mass Index 27.32 (83.91 kg, 175.26 cm) 13:03 Pain Scale: Adult ss Procedures: 13:16 Suture/Staple removal: Removed 2 leola, from scalp, site appears well healed, Patient rn tolerated well. MDM: 13:03 Patient medically screened. rn 13:16 Data reviewed: vital signs, nurses notes, old medical records, and as a result, I will international nurse patient. Counseling: I had a detailed discussion with the patient and/or guardian regarding: the historical points, exam findings, and any diagnostic results supporting the discharge/admit diagnosis, the need for outpatient follow up, to return to the emergency department if symptoms worsen or persist or if there are any questions or concerns that arise at home. Special discussion: I discussed with the patient/guardian in detail that at this point there is no indication for admission to the hospital. It is understood, however, that if the symptoms persist or worsen the patient needs to return immediately for re-evaluation. 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
[2023-02-01 13:46] VITALS: BP 122/75; TEMP 98.1; O2SAT 99
== END 2023-02-01 13:25 | disposition home or self-care (01) ==
LOC: ER 12:58
DX: Z48.02 Encounter for removal of sutures (principal)
CPT/HCPCS: 99282